=== PATIENT | male | born 1965 | race Caucasian/White ===

== ENCOUNTER 2017-01-18 13:04 | Observation (INO) | payer OTHER ==
[2017-01-18] VITALS (9 sets, daily range): BP systolic 97–150; BP diastolic 54–85; PULSE 61–80; RESP 16–20; TEMP 97.3–98.4; O2SAT 96–98
[~2017-01-18] VITALS: Ht 172.7 cm; Wt 72.5 kg
--- NOTE | 2017-01-18 13:21 | PD ---
HPI Chief Complaint: Chest Pain Time Seen by Provider: 13:20 Travel History International Travel<30 days: No Contact w/Intl Traveler<30days: No Traveled to known affect area: No History of Present Illness HPI This is a 51-year-old male presents emergency department for evaluation of chest tightness. Patient states his been on and off for the past week, he presented to the emergency department today because while mowing his lawn the chest tightness. Fairly tense associated with some nausea without vomiting as well as some mild shortness of breath. Patient states she's never had heart problems before other than evaluation for palpitations and is recommended that he have a stress test please never had one performed. He is a smoker has hypertriglyceridemia but no high blood pressure no diabetes. PFSH Past Medical History Narrative Medical NICK 12 years ago, palpitations, Past Surgical History Narrative Surgical Knee surgery, bladder surgery, Social History Alcohol Use: Yes Tobacco Use: Yes Substance Use: Yes Allergies-Medications (Allergen,Severity, Reaction): Coded Allergies: No Known Allergies (Unverified , 01/18/17) Review of Systems Except as stated in HPI: all other systems reviewed are Neg Physical Exam Narrative GENERAL: Well-developed well-nourished in no obvious distress. SKIN: Focused skin assessment warm/dry. HEAD: Atraumatic. Normocephalic. EYES: Pupils equal and round. No scleral icterus. No injection or drainage. ENT: No nasal bleeding or discharge. Mucous membranes pink and moist. NECK: Trachea midline. No JVD. CARDIOVASCULAR: Regular rate and rhythm. No murmur appreciated. 2+ bilateral equal pulses in all 4 extremities. RESPIRATORY: No accessory muscle use. Clear to auscultation. Breath sounds equal bilaterally. GASTROINTESTINAL: Abdomen soft, non-tender, nondistended. Hepatic and splenic margins not palpable. MUSCULOSKELETAL: No obvious deformities. No clubbing. No cyanosis. No edema. NEUROLOGICAL: Awake and alert. No obvious cranial nerve deficits. Motor grossly within normal limits. Normal speech. PSYCHIATRIC: Appropriate mood and affect; insight and judgment normal. Data Data Last Documented VS Vital Signs Date Time Temp Pulse Resp B/P Pulse Ox O2 Delivery O2 Flow Rate FiO2 01/18/17 14:40 69 18 118/74 96 Room Air Orders Ckmb (Isoenzyme) Profile (01/18/17 13:27) Complete Blood Count With Diff (01/18/17 13:27) Comprehensive Metabolic Panel (01/18/17 13:27) Magnesium (Mg) (01/18/17 13:27) Prothrombin Time / Inr (Pt) (01/18/17 13:27) Act Partial Throm Time (Ptt) (01/18/17 13:27) Troponin I (01/18/17 13:27) Lipase (01/18/17 13:27) Chest, Single Ap (01/18/17 13:) Ecg Monitoring (01/18/17 13:) Bilateral Bp Monitoring (01/18/17 13:27) Iv Access Insert/Monitor (01/18/17 13:) Oximetry (01/18/17 13:) Oxygen Administration (01/18/17 13:) Aspirin Chew (Aspirin Chew) (01/18/17 13:30) Sodium Chloride 0.9% Flush (Ns Flush) (01/18/17 13:30) Nitroglycerin Sl (Nitrostat Sl) (01/18/17 13:30) CKMB (01/18/17 13:33) CKMB% (01/18/17 13:33) Ct Abd/Pel W Iv Contrast(Rout) (01/18/17 ) Electrocardiogram (01/18/17 13:15) Iohexol 350 Inj (Omnipaque 350 Inj) (01/18/17 15:14) Sodium Chlor 0.9% 1000 Ml Inj (Ns 1000 M (01/18/17 15:30) Admit Order (Ed Use Only) (01/18/17 ) Labs Laboratory Tests Test 01/18/17 13:33 White Blood Count 12.5 TH/MM3 Red Blood Count 4.75 MIL/MM3 Hemoglobin 14.4 GM/DL Hematocrit 42.0 % Mean Corpuscular Volume 88.4 FL Mean Corpuscular Hemoglobin 30.2 PG Mean Corpuscular Hemoglobin 34.2 % Concent Red Cell Distribution Width 12.0 % Platelet Count 289 TH/MM3 Mean Platelet Volume 7.9 FL Neutrophils (%) (Auto) 68.6 % Lymphocytes (%) (Auto) 22.2 % Monocytes (%) (Auto) 7.9 % Eosinophils (%) (Auto) 0.8 % Basophils (%) (Auto) 0.5 % Neutrophils # (Auto) 8.5 TH/MM3 Lymphocytes # (Auto) 2.8 TH/MM3 Monocytes # (Auto) 1.0 TH/MM3 Eosinophils # (Auto) 0.1 TH/MM3 Basophils # (Auto) 0.1 TH/MM3 CBC Comment DIFF FINAL Differential Comment Prothrombin Time 11.8 SEC Prothromb Time International 1.1 RATIO Ratio Activated Partial 25.0 SEC Thromboplast Time Sodium Level 141 MEQ/L Potassium Level 3.9 MEQ/L Chloride Level 105 MEQ/L Carbon Dioxide Level 28.2 MEQ/L Anion Gap 8 MEQ/L Blood Urea Nitrogen 19 MG/DL Creatinine 1.10 MG/DL Estimat Glomerular Filtration 71 ML/MIN Rate Random Glucose 102 MG/DL Calcium Level 8.5 MG/DL Magnesium Level 1.8 MG/DL Total Bilirubin 0.6 MG/DL Aspartate Amino Transf 18 U/L (AST/SGOT) Alanine Aminotransferase 20 U/L (ALT/SGPT) Alkaline Phosphatase 62 U/L Total Creatine Kinase 210 U/L Creatine Kinase MB 2.4 NG/ML Troponin I LESS THAN 0.02 NG/ML Total Protein 7.0 GM/DL Albumin 3.6 GM/DL Lipase 865 U/L MDM Medical Decision Making Medical Screen Exam Complete: Yes Emergency Medical Condition: Yes Interpretation(s) EKG shows normal sinus rhythm normal axis normal R-wave progression. No concerning ST segment changes. Intervals within normal limits. This normal EKG. Differential Diagnosis ACS, AMI, pneumonia, GERD, pancreatitis. Narrative Course Patient roomed in emergency department, has fairly classic descriptors of exertional chest pain associated with cardiac disease. Initial EKG and troponin are negative, patient has an elevation of lipase to 800, think his symptoms are much more consistent with cardiac disease but I think a CAT scan was indicated is never had pancreatitis before. Ultimately I will recommend admission to the hospital for this patient for exclusion of coronary artery disease. This was discussed the patient and he is agreeable. Patient was given nitroglycerin and feels somewhat better. Last 24 hours Impressions Chest X-Ray 01/18/17 1327 Signed Impressions: Service Date/Time: Wednesday, January 18, 2017 13:53 - CONCLUSION: No acute cardiopulmonary disease. Janell Conde MD Abdomen/Pelvis CT 01/18/17 0000 Signed Impressions: Service Date/Time: Wednesday, January 18, 2017 14:53 - CONCLUSION: Distal ureteral diverticuli bilaterally and scattered diverticuli in the colon. Janell Conde MD Diagnosis Primary Impression: Chest pain Additional Impression: Pancreatitis Admitting Information Admitting Physician Requests: Observation Condition: Stable Aureliano Woodall MD Jan 18, 2017 13:20
[2017-01-18] MEDS ORDERED: NITROGLYCERIN 0.4 MG SL 25 TABS/BTL SL ONE (13:30)
[2017-01-18] MEDS ORDERED: ASPIRIN 81 MG CHEW TAB PO ONE (13:30)
[2017-01-18] MEDS ORDERED: SODIUM CHLORIDE 0.9% FLUSH 10 ML FLUSH IVF PRN (13:30)
[2017-01-18 13:43] LABS: AUTOMATED NEUTROPHIL # 8.5 TH/MM3 (1.8-7.7); BASOPHIL # 0.1 TH/MM3 (0-0.2); BASOPHIL % 0.5 % (0.0-2.0); EOSINOPHIL # 0.1 TH/MM3 (0-0.4); EOSINOPHIL % 0.8 % (0.0-4.0); HEMO FLAGS DIFF FINAL; LYMPH % 22.2 % (9.0-44.0); LYMPHOCYTE # 2.8 TH/MM3 (1.0-4.8); MEAN CELL VOLUME 88.4 FL (80.0-100.0); MEAN CORPUSCULAR HEMOGLOBIN 30.2 PG (27.0-34.0); MEAN CORPUSCULAR HGB CONC 34.2 % (32.0-36.0); MONO % 7.9 % (0.0-8.0); NEUT % 68.6 % (16.0-70.0); PLATELET COUNT 289 TH/MM3 (150-450); RED BLOOD COUNT 4.75 MIL/MM3 (4.50-5.90); WHITE BLOOD COUNT 12.5 TH/MM3 (4.0-11.0)
[2017-01-18 13:52] LABS: CHLORIDE 105 MEQ/L (98-107); POTASSIUM 3.9 MEQ/L (3.5-5.1); SODIUM (NA) 141 MEQ/L (136-145)
[2017-01-18 13:56] LABS: ANION GAP 8 MEQ/L (5-15); BICARBONATE 28.2 MEQ/L (21.0-32.0); BLOOD UREA NITROGEN 19 MG/DL (7-18); MAGNESIUM 1.8 MG/DL (1.5-2.5)
[2017-01-18 13:57] LABS: INTERNATIONAL NORMALIZED RATIO 1.1 RATIO; PROTHROMBIN TIME - PATIENT 11.8 SEC (9.8-11.6)
[2017-01-18 13:59] LABS: ALT (GPT) 20 U/L (12-78); AST (GOT) 18 U/L (15-37); GLOMERULAR FILTRATION RATE 71 ML/MIN (>89)
[2017-01-18 14:00] LABS: TOTAL BILIRUBIN ADULT 0.6 MG/DL (0.2-1.0)
[2017-01-18 14:02] LABS: ALKALINE PHOSPHATASE 62 U/L (45-117); CREATINE KINASE 210 U/L (39-308)
[2017-01-18 14:14] LABS: CKMB 2.4 NG/ML (0.5-3.6)
--- NOTE | 2017-01-18 14:31 | RADRPT ---
EXAM DATE/TIME: 01/18/2017 13:53 [facility] COMPARISON: No previous studies available for comparison. INDICATIONS : Chest pain, short of breath MEDICAL HISTORY : None. SURGICAL HISTORY : None. ENCOUNTER: Initial ACUITY: 2 weeks PAIN SCORE: 7/10 LOCATION: Bilateral chest FINDINGS: The lungs are clear without infiltrate, nodule, or mass. There is no appreciable pleural effusion fo r technique. Heart and mediastinum are unremarkable. CONCLUSION: No acute cardiopulmonary disease. Janell Conde MD on January 18, 2017 at 14:29 Board Certified Radiologist. This report was verified electronically.
[2017-01-18] MEDS ORDERED: IOHEXOL 350 MG/ML 10 ML VIAL (for RAD DIAG) IV ONE (15:14)
[2017-01-18] MEDS ORDERED: SODIUM CHLOR 0.9% 1000 ML INJ 1,000 ML IV ONE (15:30)
--- NOTE | 2017-01-18 15:37 | RADRPT ---
EXAM DATE/TIME: 01/18/2017 14:53 [facility] COMPARISON: No previous studies available for comparison. INDICATIONS : Chest pain,elevated lipase. IV CONTRAST: 100 cc Omnipaque 350 (iohexol) IV ORAL CONTRAST: No oral contrast ingested. RADIATION DOSE: 6.90 CTDIvol (mGy) MEDICAL HISTORY : TIA SURGICAL HISTORY : Bladder surgery. ENCOUNTER: Initial ACUITY: 1 day PAIN SCALE: 3/10 LOCATION: Bilateral chest TECHNIQUE: Volumetric scanning of the abdomen and pelvis was performed. Using automated exposure control and ad justment of the mA and/or kV according to patient size, radiation dose was kept as low as reasonably achievable to obtain optimal diagnostic quality images. DICOM format image data is available electro nically for review and comparison. FINDINGS: CT Abdomen: The liver, spleen, pancreas, kidneys, adrenals are unremarkable. There is no evidence for any appreciable pathological adenopathy, free fluid, or bowel obstruction. CT pelvis: There is no evidence for mass, abscess formation, or any significant adenopathy within the pelvis. The prostate gland is inhomogeneous and measures 3.2 x 3.8 cm in AP and transverse diameters and nonspecific. There are scattered diverticuli mainly in the sigmoid colon without definite signs of diverticulitis. There appears to be dilatations of the bilateral distal ureters prior to insertion into the bladder at the appearance of diverticuli. On the left side measures 2.5 cm and on the right side there are 2 separate areas the largest measures 2.1 cm in size. CONCLUSION: Distal ureteral diverticuli bilaterally and scattered diverticuli in the colon. Janell Conde MD on January 18, 2017 at 15:32 Board Certified Radiologist. This report was verified electronically.
[2017-01-18] MEDS ORDERED: NITROGLYCERIN 0.4 MG SL 25 TABS/BTL SL PRN (17:30)
[2017-01-18] MEDS ORDERED: ONDANSETRON HCL 4 MG/2 ML VIAL IVP PRN (17:30)
[2017-01-18] MEDS ORDERED: ACETAMINOPHEN 325 MG TAB PO PRN (17:30)
--- NOTE | 2017-01-18 17:35 | HHI.HP ---
[facility] Primary Care Physician Katelynn Hand Admission Diagnosis Chest pain, Pancreatitis. Diagnoses: Chief Complaint: Chest pain Travel History International Travel<30 Days: No Contact w/Intl Traveler <30 Da: No Traveled to Known Affected Are: No History of Present Illness Patient 51-year-old gentleman with minimal medical problems but admits almost 2 weeks of intermittent but severe chest tightness with exertion. Patient was mowing his lawn today had some chest discomfort. Patient says there is associated nausea and no vomiting and this discomfort is worse after he ate a previous episode. Patient denies any heart history and did come in with these complaints. He says while he was in [place] recently had the same symptoms after he ate heavy meals and noticed that he thought he had heartburn. He took some Rolaids with some relief. He came back home his encouraged him to come to the hospital. Patient does exercise daily and he does cardiovascular exercises at the gym without any discomfort oh however the last 3 days he has had increased shortness of breath and early fatigue. There is no family history of premature cardiac disease and the patient's EKG on my review it is normal without any ischemic changes. Patient does suffer from anxiety and takes amitriptyline as needed Review of Systems Constitutional: DENIES: Diaphoretic episodes, Fatigue, Fever, Weight gain, Weight loss, Chills, Dizziness, Change in appetite, Night Sweats Endocrine: DENIES: Heat/cold intolerance, Polydipsia, Polyuria, Polyphagia Eyes: DENIES: Blurred vision, Diplopia, Eye inflammation, Eye pain, Vision loss , Photosensitivity, Double Vision Ears, nose, mouth, throat: DENIES: Tinnitus, Hearing loss, Vertigo, Nasal discharge, Oral lesions, Throat pain, Hoarseness, Ear Pain, Running Nose, Epistaxis, Sinus Pain, Toothache, Odynophagia Respiratory: COMPLAINS OF: Shortness of breath, DENIES: Apneas, Cough, Snoring , Wheezing, Hemoptysis, Sputum production Cardiovascular: COMPLAINS OF: Chest pain, Palpitations, Dyspnea on Exertion Gastrointestinal: DENIES: Abdominal pain, Black stools, Bloody stools, Constipation, Diarrhea, Nausea, Vomiting, Difficulty Swallowing, Anorexia Genitourinary: DENIES: Sexual dysfunction, Urinary frequency, Urinary incontinence, Urgency, Hematuria, Dysuria, Nocturia, Penile Discharge, Testicular Pain, Testicular Swelling Musculoskeletal: DENIES: Joint pain, Muscle aches, Stiffness, Joint Swelling, Back pain, Neck pain Integumentary: DENIES: Abnormal pigmentation, Nail changes, Pruritus, Rash Hematologic/lymphatic: DENIES: Bruising, Lymphadenopathy Immunologic/allergic: DENIES: Eczema, Urticaria Neurologic: DENIES: Abnormal gait, Headache, Localized weakness, Paresthesias, Seizures, Speech Problems, Tremor, Poor Balance Psychiatric: DENIES: Anxiety, Confusion, Mood changes, Depression, Hallucinations, Agitation, Suicidal Ideation, Homicidal Ideation, Delusions Past Family Social History Past Medical History Denies Past Surgical History Knee arthroscopically, bladder surgery Reported Medications None Allergies: Coded Allergies: No Known Allergies (Unverified , 01/18/17) Active Ordered Medications Reviewed in the medical record Family History Mother had diabetes, father's history is unknown but believed to have leukemia Sr. 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 SKIN: No rashes, ecchymoses or lesions. Cool and dry. HEAD: Atraumatic. Normocephalic. No temporal or scalp tenderness. EYES: Pupils equal round and reactive. Extraocular motions intact. No scleral icterus. No injection or drainage. ENT: Nose without bleeding, purulent drainage or septal hematoma. Throat without erythema, tonsillar hypertrophy or exudate. Uvula midline. Airway patent. NECK: Trachea midline. No JVD or lymphadenopathy. Supple, nontender, no meningeal signs. CARDIOVASCULAR: Regular rate and rhythm without murmurs, gallops, or rubs. RESPIRATORY: Clear to auscultation. Breath sounds equal bilaterally. No wheezes , rales, or rhonchi. GASTROINTESTINAL: Abdomen soft, non-tender, nondistended. No hepato-splenomegaly , or palpable masses. No guarding. MUSCULOSKELETAL: Extremities without clubbing, cyanosis, or edema. No joint tenderness, effusion, or edema noted. No calf tenderness. Negative Homans sign bilaterally. NEUROLOGICAL: Awake and alert. Cranial nerves II through XII intact. Motor and sensory grossly within normal limits. Five out of 5 muscle strength in all muscle groups. Normal speech. Laboratory Laboratory Tests Test 01/18/17 13:33 White Blood Count 12.5 Red Blood Count 4.75 Hemoglobin 14.4 Hematocrit 42.0 Mean Corpuscular Volume 88.4 Mean Corpuscular Hemoglobin 30.2 Mean Corpuscular Hemoglobin 34.2 Concent Red Cell Distribution Width 12.0 Platelet Count 289 Mean Platelet Volume 7.9 Neutrophils (%) (Auto) 68.6 Lymphocytes (%) (Auto) 22.2 Monocytes (%) (Auto) 7.9 Eosinophils (%) (Auto) 0.8 Basophils (%) (Auto) 0.5 Neutrophils # (Auto) 8.5 Lymphocytes # (Auto) 2.8 Monocytes # (Auto) 1.0 Eosinophils # (Auto) 0.1 Basophils # (Auto) 0.1 CBC Comment DIFF FINAL Differential Comment Prothrombin Time 11.8 Prothromb Time International 1.1 Ratio Activated Partial 25.0 Thromboplast Time Sodium Level 141 Potassium Level 3.9 Chloride Level 105 Carbon Dioxide Level 28.2 Anion Gap 8 Blood Urea Nitrogen 19 Creatinine 1.10 Estimat Glomerular Filtration 71 Rate Random Glucose 102 Calcium Level 8.5 Magnesium Level 1.8 Total Bilirubin 0.6 Aspartate Amino Transf 18 (AST/SGOT) Alanine Aminotransferase 20 (ALT/SGPT) Alkaline Phosphatase 62 Total Creatine Kinase 210 Creatine Kinase MB 2.4 Troponin I LESS THAN 0.02 Total Protein 7.0 Albumin 3.6 Lipase 865 Result Diagram: 01/18/17 1333 01/18/17 1333 Imaging Last Impressions Chest X-Ray 01/18/17 1327 Signed Impressions: Service Date/Time: Wednesday, January 18, 2017 13:53 - CONCLUSION: No acute cardiopulmonary disease. Janell Cnode MD Abdomen/Pelvis CT 01/18/17 0000 Signed Impressions: Service Date/Time: Wednesday, January 18, 2017 14:53 - CONCLUSION: Distal ureteral diverticuli bilaterally and scattered diverticuli in the colon. Janell Conde MD Assessment and Plan Problem List: (1) Chest pain ICD Code: R07.9 Status: Acute Plan: atypical r/o gi causes Us gb pending follow up lipid profile meanwhile treat with morphine, oxygen, nitroglycerin, aspirin Continue telemetry Add proton pump inhibitor Marian Faustin MD Jan 18, 2017 17:35
[2017-01-18] MEDS: PANTOPRAZOLE SOD 40 MG DELAYED RELEASE TAB PO SCH (17:45)
[2017-01-18] MEDS ORDERED: AMITRIPTYLINE HCL 25 MG TAB PO PRN (17:45)
[2017-01-18] MEDS ORDERED: MORPHINE SULFATE 8 MG/ML INJ IV PUSH PRN (17:45)
[2017-01-18] MEDS: SODIUM CHLOR 0.9% 1000 ML INJ 1,000 ML IV SCH (17:47)
--- NOTE | 2017-01-18 20:26 | RADRPT ---
EXAM DATE/TIME: 01/18/2017 19:51 [facility] COMPARISON: No previous studies available for comparison. INDICATIONS : Right upper quadrant pain. MEDICAL HISTORY : Hypercholesterolemia. Cerebrovascular accident. Palptations. Dyspnea. Alcohol use. Substance use. SURGICAL HISTORY : Appendectomy. Bladder surgery. ACL and meniscus repair. ENCOUNTER: Initial ACUITY: 1 day PAIN SCORE: 10 LOCATION: Right upper quadrant MEASUREMENTS: LIVER: 16.3 cm length COMMON DUCT: 3 mm RIGHT KIDNEY: 10.1 x 5.4 x 5.9 cm FINDINGS: The liver is slightly echogenic which maybe due to fatty infiltration and or hepatocellular dysfuncti on. The gallbladder is intact without any evidence for gallstones, gallbladder wall thickening, or pe richolecystic fluid. The right kidney appear grossly intact for technique. The pancreas is obscured by gas. CONCLUSION: The liver is slightly echogenic which maybe due to fatty infiltration and or hepatoce llular dysfunction. Janell Conde MD on January 18, 2017 at 20:23 Board Certified Radiologist. This report was verified electronically.
[2017-01-18 22:50] LABS: CREATINE KINASE 216 U/L (39-308)
[2017-01-18 23:02] LABS: CKMB 2.1 NG/ML (0.5-3.6)
[2017-01-19] VITALS (11 sets, daily range): BP systolic 97–178; BP diastolic 63–88; PULSE 62–80; RESP 16–20; TEMP 96.4–98.2; O2SAT 96–98
[2017-01-19] MEDS: PANTOPRAZOLE SOD 40 MG DELAYED RELEASE TAB PO SCH (08:29)
[2017-01-19] MEDS: SODIUM CHLOR 0.9% 1000 ML INJ 1,000 ML IV SCH ×3 (08:32→20:12)
--- NOTE | 2017-01-19 09:13 | HHI.PR ---
Subjective Remarks Patient seen today in follow-up for atypical chest pain. Chest pain is resolved and lipase is improved. Patient reports improvement with Protonix. He also reported some anxiety and desire for cigarettes. Plan for stress test discussed with patient and spouse at bedside. Care plan discussed with Mrayan KERNS Objective Vitals Vital Signs Date Time Temp Pulse Resp B/P Pulse Ox O2 Delivery O2 Flow Rate FiO2 01/19/17 04:00 96.4 67 18 121/79 96 01/19/17 00:53 67 01/19/17 00:00 97.3 68 20 97/63 96 01/18/17 20:10 98.4 61 17 123/85 98 01/18/17 20:10 61 01/18/17 19:45 62 16 118/60 98 Room Air 01/18/17 19:03 58 Room Air 01/18/17 16:35 70 16 120/54 98 Room Air 01/18/17 14:40 69 18 118/74 96 Room Air 01/18/17 13:49 80 18 150/76 96 Room Air 01/18/17 13:40 135/72 150/83 01/18/17 13:34 97 Room Air 01/18/17 13:34 18 97 Room Air 01/18/17 13:15 75 18 97 Room Air 01/18/17 13:12 70 18 144/82 98 I/O 01/18/17 01/18/17 01/18/17 01/19/17 01/19/17 01/19/17 07:00 15:00 23:00 07:00 15:00 23:00 Intake Total 1440 ml 0 ml Output Total 1150 ml Balance 290 ml 0 ml Intake Oral 240 ml 0 ml IV Total 1200 ml Output Urine Total 1150 ml # Voids 1 1 1 # Bowel Movements 0 Result Diagram: 01/18/17 1333 01/18/17 1333 Imaging Last Impressions Chest X-Ray 01/18/17 1327 Signed Impressions: Service Date/Time: Wednesday, January 18, 2017 13:53 - CONCLUSION: No acute cardiopulmonary disease. Janell Conde MD Gall Bladder Ultrasound 01/18/17 0000 Signed Impressions: Service Date/Time: Wednesday, January 18, 2017 19:51 - CONCLUSION: The liver is slightly echogenic which maybe due to fatty infiltration and or hepatocellular dysfunction. Janell Conde MD Abdomen/Pelvis CT 01/18/17 0000 Signed Impressions: Service Date/Time: Wednesday, January 18, 2017 14:53 - CONCLUSION: Distal ureteral diverticuli bilaterally and scattered diverticuli in the colon. Janell Conde MD Objective Remarks GENERAL: This is a well-nourished, well-developed patient, in no apparent distress. CARDIOVASCULAR: Regular rate and rhythm without murmurs, gallops, or rubs. RESPIRATORY: Clear to auscultation. Breath sounds equal bilaterally. No wheezes , rales, or rhonchi. GASTROINTESTINAL: Abdomen soft, non-tender, nondistended. Normal active bowel sounds MUSCULOSKELETAL: Extremities without clubbing, cyanosis, or edema. NEURO: Alert & Oriented x4 to person, place, time, situation. Moves all ext x4 A/P Problem List: (1) Chest pain ICD Code: R07.9 Status: Acute Plan: atypical r/o gi causes Nuclear stress test pending Us gb unremarkable follow up lipid profile meanwhile treat with morphine, oxygen, nitroglycerin, aspirin Continue telemetry Continue proton pump inhibitor Assessment and Plan If stress tests negative likely discharge home to follow with primary care doctor and with proton pump inhibitor Marian Faustin MD Jan 19, 2017 09:13
--- NOTE | 2017-01-19 10:13 | HHI.DCPOC ---
Discharge Care Plan Diagnosis: (1) Chest pain, atypical Goals to Promote Your Health * To prevent worsening of your condition and complications * To maintain your health at the optimal level Directions to Meet Your Goals Take your medications as prescribed Follow your dietary instruction Follow activity as directed Keep your appointments as scheduled Take your immunizations and boosters as scheduled If your symptoms worsen call your PCP, if no PCP go to Urgent Care Center or Emergency Room Smoking is Dangerous to Your Health. Avoid second hand smoke Call the 24-hour hour crisis hotline for domestic abuse at Marian Faustin MD Jan 19, 2017 10:13
[2017-01-19] MEDS ORDERED: REGADENOSON INJ 0.4 MG/5 ML SYR IV ONE (10:34)
[2017-01-19 10:59] LABS: HDL CHOLESTEROL 39.4 MG/DL (40.0-60.0)
--- NOTE | 2017-01-19 12:21 | RADRPT ---
EXAM DATE/TIME: 01/19/2017 10:25 [facility] COMPARISON: No previous studies available for comparison. INDICATIONS : Substernal chest pain with mild dyspnea and nausea. Angina. DOSE: 26.3 mCi Tc99m Myoview at stress. 8.8 mCi Tc99m Myoview at rest. 0.4 mg Lexiscan STRESS SYMPTOMS: Dyspnea and nausea. EJECTION FRACTION: 51% MEDICAL HISTORY : Hypercholesterolemia. Smoker. SURGICAL HISTORY : Orthopedic. ENCOUNTER: Initial ACUITY: 1 week PAIN SCALE: 4/10 LOCATION: Substernal chest TECHNIQUE: The patient underwent pharmacologic stress with infusion of prescribed dose. Continuous ECG tracing was monitored during stress. Gated SPECT imaging was performed after stress and conventional SPECT i maging was performed at rest. The examination was performed on a SPECT/CT scanner, both attenuation and non-corrected datasets were reviewed. FINDINGS: DISTRIBUTION: The maximum perfused segment at stress is in the inferior wall. PERFUSION STUDY: Stress induced hypoperfusion is present throughout the anterior and anterolateral jose of the left v entricle. A focal fixed perfusion abnormalities identified in the inferoseptal wall. GATED STUDY: The anterior wall is mildly hypokinetic. Wall motion is otherwise intact.. CONCLUSION: Reversible stress induced hypoperfusion involving the anterior and anterolateral jose of left ventri manjit. Small persistent defect in the inferoseptal wall. RISK CATEGORY: High (>3% Annual Mortality Rate) León Crawford MD on January 19, 2017 at 12:16 Board Certified Radiologist. This report was verified electronically.
--- NOTE | 2017-01-19 12:41 | EKG ---
Date Performed: 01/18/2017 Time Performed: 13:15:12 PTAGE: 51 years EKG: Sinus rhythm NORMAL ECG NO PREVIOUS TRACING DOCTOR: Shubham Hopkins Interpretating Date/Time 01/19/2017 12:34:50
[2017-01-19] MEDS: ALPRAZolam 0.5 MG TAB PO PRN (20:12)
[2017-01-20] VITALS (27 sets, daily range): BP systolic 116–128; BP diastolic 52–77; PULSE 54–70; RESP 16–20; TEMP 97.4–98.2; O2SAT 94–97
[2017-01-20] MEDS: SODIUM CHLOR 0.9% 1000 ML INJ 1,000 ML IV SCH ×2 (06:30→19:20)
[2017-01-20] MEDS: ASPIRIN 325 MG TAB PO SCH (08:23)
[2017-01-20] MEDS: PANTOPRAZOLE SOD 40 MG DELAYED RELEASE TAB PO SCH (08:23)
[2017-01-20] MEDS: ALPRAZolam 0.5 MG TAB PO PRN ×2 (08:23→19:44)
--- NOTE | 2017-01-20 08:33 | HHI.PR ---
Subjective Remarks Pt states he feels well. Denies any Chest pains, SOB, nausea or vomiting. Was about to go for a walk. Hasn't yet spoken w cards Discussed w RN, no concerns at this time. Objective Vitals Vital Signs Date Time Temp Pulse Resp B/P Pulse Ox O2 Delivery O2 Flow Rate FiO2 01/20/17 07:00 57 01/20/17 06:20 55 01/20/17 05:31 56 01/20/17 04:10 98.0 61 16 123/77 97 01/20/17 04:10 54 01/20/17 03:15 57 01/20/17 02:00 60 01/20/17 01:20 60 01/20/17 00:10 60 01/20/17 00:00 98.0 70 18 116/52 94 01/19/17 23:37 64 01/19/17 22:00 62 01/19/17 21:00 74 01/19/17 20:20 65 01/19/17 20:20 98.2 66 16 128/79 96 01/19/17 16:03 65 01/19/17 16:00 98.1 80 18 130/77 97 01/19/17 12:10 97.6 67 16 129/74 98 I/O 01/19/17 01/19/17 01/19/17 01/20/17 01/20/17 01/20/17 07:00 15:00 23:00 07:00 15:00 23:00 Intake Total 0 ml 240 ml 1210 ml Output Total 675 ml Balance 0 ml 240 ml 535 ml Intake Oral 0 ml 240 ml 440 ml IV Total 770 ml Output Urine Total 675 ml # Voids 1 3 # Bowel Movements 0 Result Diagram: 01/18/17 1333 01/18/17 1333 Imaging Last Impressions Myocardial Perfusion Scan Nuc Med 01/19/17 0600 Signed Impressions: Service Date/Time: Thursday, January 19, 2017 10:25 - CONCLUSION: Reversible stress induced hypoperfusion involving the anterior and anterolateral jose of left ventricle. Small persistent defect in the inferoseptal wall. RISK CATEGORY: High (>3%% Annual Mortality Rate) León Crawford MD Chest X-Ray 01/18/17 1327 Signed Impressions: Service Date/Time: Wednesday, January 18, 2017 13:53 - CONCLUSION: No acute cardiopulmonary disease. Janell Conde MD Gall Bladder Ultrasound 01/18/17 0000 Signed Impressions: Service Date/Time: Wednesday, January 18, 2017 19:51 - CONCLUSION: The liver is slightly echogenic which maybe due to fatty infiltration and or hepatocellular dysfunction. Janell Conde MD Abdomen/Pelvis CT 01/18/17 0000 Signed Impressions: Service Date/Time: Wednesday, January 18, 2017 14:53 - CONCLUSION: Distal ureteral diverticuli bilaterally and scattered diverticuli in the colon. Janell Conde MD Objective Remarks GENERAL: This is a well-nourished, well-developed patient, ambulating in room CARDIOVASCULAR: Regular rate and rhythm without murmurs RESPIRATORY: Clear to auscultation. Breath sounds equal bilaterally. No wheezes GASTROINTESTINAL: Abdomen soft, non-tender, nondistended. Normal active bowel sounds MUSCULOSKELETAL: Extremities without edema. NEURO: Alert & Oriented x4 to person, place, time, situation. Moves all ext x4 Eyes: EOMI Psych: pleasant A/P Problem List: (1) Chest pain ICD Code: R07.9 Status: Acute Assessment and Plan Chest Pain: atypical, lipase levels initially elevated but back down to normal. Nuclear stress test shows :"Reversible stress induced hypoperfusion involving the anterior and anterolateral jose of left ventricle. Small persistent defect in the inferoseptal wall. High risk. Pt was transferred from for further eval. Cards consulted. awaiting final recs". Us gb unremarkable Lipid profile TG 153, LDL 113, HDL 39.4. will start lipitor 40mg po daily. on morphine, oxygen, nitroglycerin, aspirin Continue telemetry Continue proton pump inhibitor Discharge Planning awaiting final recs from cards Saskia Rodriguez MD Jan 20, 2017 08:32
[2017-01-20] MEDS: ATORVASTATIN 40 MG TAB PO SCH (13:18)
--- NOTE | 2017-01-20 18:55 | MB ---
cc: SAGE ROWLAND DO DATE OF CONSULTATION: 01/20/2017. REASON FOR CONSULTATION: Chest pain with abnormal stress test. HISTORY OF PRESENT ILLNESS: Blas Faustin is a pleasant 51-year-old male who presented due to intermittent chest pain for the past few weeks to the [facility] Emergency Room. He was ruled out for a myocardial infarction and so he underwent a pharmacologic nuclear stress test which was shown to have anterior and anterolateral wall hypoperfusion during stress. Because of this, he was recommended cardiac catheterization. In speaking to him, he states that he has had episodes off and on of chest pain for some time. He had an episode with his son a while back that took him into his knees because the chest pain was so much. He started having a workup in the outpatient office with Dr. Walker. He just recently went to [place] and upon arriving back he has had the same chest pain. The chest pain is a small area on the anterior left side of the chest which he can point to with one finger. He has also had episodes of nausea but no vomiting. During this, he also gets an epigastric discomfort. The patient does exercise daily and during cardiovascular he has no significant discomfort but has noticed recently increased shortness of breath with fatigue. In seeing him, he is currently hemodynamically stable without chest pain. PAST MEDICAL HISTORY: Denies. PAST SURGICAL HISTORY: 1. Bladder surgery. 2. Arthroscopic knee surgery. ALLERGIES: NO KNOWN DRUG ALLERGIES. MEDICATIONS: Denies. FAMILY HISTORY: Mother has diabetes. His father's history is unknown. SOCIAL HISTORY: The patient smokes a pack of cigarettes a day. Denies alcohol. He is . 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 Denies drug abuse. REVIEW OF SYSTEMS Fourteen systems were reviewed including osteopathic with pertinent positives and negatives as above; otherwise negative. PHYSICAL EXAMINATION: VITAL SIGNS: Temperature 98.2, heart rate 60, blood pressure 122/64, respirations 20, pulse ox 96% on room air. GENERAL: In general, the patient appears well and in no acute distress, alert awake and oriented x3. HEAD, EYES, EARS, NOSE, THROAT: Extraocular muscles intact. Mucous membranes moist. NECK: The neck is supple. No JVD at 45 degrees. No carotid bruits heard bilaterally. Carotid upstroke is brisk in nature. HEART: Regular rate and rhythm. Positive first and second heart sounds with no murmurs, gallops or rubs. PMI is nondisplaced. LUNGS: Clear to auscultation bilaterally. No wheezes, rales or rhonchi. ABDOMEN: The abdomen is soft, nontender and nondistended. No organomegaly noted. EXTREMITIES: No clubbing, cyanosis or edema. Femoral and distal pulses are intact bilaterally. NEUROLOGIC: No focal deficits. OSTEOPATHIC: Osteopathically, no kyphoscoliosis, lordosis or paraspinal tender points. LABORATORY FINDINGS: Hemoglobin 14.4, hematocrit 42.0, platelets 289,000. Potassium 3.9, BUN 19, creatinine 1.1. Troponin negative x2. Total cholesterol 183, LDL 113, HDL 39.4, triglycerides 153. Electrocardiogram (January 18, 2017 at 1315): Normal sinus rhythm with 69 beats per minute, no acute S-T-T wave changes. IMPRESSION: 1. Chest pain concerning for coronary insufficiency. 2. Abnormal pharmacologic nuclear stress test with possible ischemia in the anterior and anterolateral jose considered an intermediate risk stress test. 3. Tobacco abuse. RECOMMENDATIONS: 1. Mr. Faustin is presenting with chest pain and underwent a stress test showing an intermediate risk and because of this he has been recommended cardiac catheterization. 2. Risks, benefits and alternatives were explained to him and his . He consents as such. 3. We will plan cardiac catheterization tomorrow from a right radial standpoint. 4. If no significant disease is found during the procedure, consideration should be made for a GI workup as the patient has had multiple episodes of nausea and heartburn. 5. Further recommendations will be made after coronary visualization. Thank you for allowing me to see Blas Faustin. If there are any questions, please do not hesitate to call. Sage Rowland DO VGP/JCC /4:32 PM /6:50 PM
[2017-01-21] VITALS (17 sets, daily range): BP systolic 115–154; BP diastolic 67–88; PULSE 51–65; RESP 18–20; TEMP 98–98.3; O2SAT 97–100
[2017-01-21 06:24] LABS: AUTOMATED NEUTROPHIL # 5.8 TH/MM3 (1.8-7.7); BASOPHIL # 0.1 TH/MM3 (0-0.2); BASOPHIL % 0.9 % (0.0-2.0); EOSINOPHIL # 0.1 TH/MM3 (0-0.4); EOSINOPHIL % 1.7 % (0.0-4.0); HEMATOCRIT 38.3 % (39.0-51.0); HEMO FLAGS DIFF FINAL; LYMPH % 22.6 % (9.0-44.0); MEAN CELL VOLUME 90.3 FL (80.0-100.0); MEAN CORPUSCULAR HGB CONC 34.3 % (32.0-36.0); MONO % 8.3 % (0.0-8.0); NEUT % 66.5 % (16.0-70.0); PLATELET COUNT 227 TH/MM3 (150-450); RED BLOOD COUNT 4.24 MIL/MM3 (4.50-5.90); RED CELL DISTRIBUTION WIDTH 12.8 % (11.6-17.2); WHITE BLOOD COUNT 8.8 TH/MM3 (4.0-11.0)
[2017-01-21 06:50] LABS: BICARBONATE 26.9 MEQ/L (21.0-32.0); POTASSIUM 4.3 MEQ/L (3.5-5.1)
[2017-01-21] MEDS: ATORVASTATIN 40 MG TAB PO SCH (08:03)
[2017-01-21] MEDS: ASPIRIN 325 MG TAB PO SCH (08:03)
[2017-01-21] MEDS: ALPRAZolam 0.5 MG TAB PO PRN (08:03)
[2017-01-21] MEDS: PANTOPRAZOLE SOD 40 MG DELAYED RELEASE TAB PO SCH (08:03)
[2017-01-21] MEDS ORDERED: VERAPAMIL HCL 5 MG/2 ML VIAL ONE (08:08)
[2017-01-21] MEDS ORDERED: HEPARIN-NS/PF INJ 500 ML ONE (08:08)
[2017-01-21] MEDS ORDERED: MIDAZOLAM HCL 2 MG/2 ML VIAL ONE ×2 (08:09→10:00)
[2017-01-21] MEDS ORDERED: HEPARIN SODIUM - IV 10,000 UNITS/10 ML VIAL ONE (08:09)
[2017-01-21] MEDS ORDERED: NITROGLYCERIN INJ 5 ML ONE (08:09)
--- NOTE | 2017-01-21 08:29 | HHI.PR ---
Subjective Remarks Pt about to go to [place]. denies any chest pain, SOB, nausea or vomiting. Feeling a bit anxious. Objective Vitals Vital Signs Date Time Temp Pulse Resp B/P Pulse Ox O2 Delivery O2 Flow Rate FiO2 01/21/17 06:00 53 01/21/17 05:00 60 01/21/17 04:00 98.0 53 20 126/76 97 01/21/17 04:00 62 01/21/17 03:00 51 01/21/17 02:00 58 01/21/17 01:00 55 01/21/17 00:00 98.0 55 20 115/67 97 01/21/17 00:00 65 01/20/17 23:00 56 01/20/17 22:00 58 01/20/17 21:00 62 01/20/17 20:00 97.4 66 20 128/75 97 01/20/17 20:00 58 01/20/17 19:00 66 01/20/17 18:00 66 01/20/17 17:00 65 01/20/17 16:00 63 01/20/17 15:28 98.2 60 20 122/64 96 01/20/17 15:00 67 01/20/17 14:00 60 01/20/17 13:00 65 01/20/17 12:00 60 01/20/17 11:15 98.1 60 20 124/68 96 01/20/17 11:00 58 01/20/17 10:00 59 01/20/17 09:00 59 I/O 01/20/17 01/20/17 01/20/17 01/21/17 01/21/17 01/21/17 06:59 14:59 22:59 06:59 14:59 22:59 Intake Total 1210 ml 2175 ml 1592 ml Output Total 675 ml 875 ml 825 ml Balance 535 ml 1300 ml 767 ml Intake Oral 440 ml 975 ml 420 ml IV Total 770 ml 1200 ml 1172 ml Output Urine Total 675 ml 875 ml 825 ml # Bowel Movements 0 Result Diagram: 01/21/17 0557 01/21/17 0557 Imaging Last Impressions Myocardial Perfusion Scan Nuc Med 01/19/17 0600 Signed Impressions: Service Date/Time: Thursday, January 19, 2017 10:25 - CONCLUSION: Reversible stress induced hypoperfusion involving the anterior and anterolateral jose of left ventricle. Small persistent defect in the inferoseptal wall. RISK CATEGORY: High (>3%% Annual Mortality Rate) León Crawford MD Chest X-Ray 01/18/17 1327 Signed Impressions: Service Date/Time: Wednesday, January 18, 2017 13:53 - CONCLUSION: No acute cardiopulmonary disease. Janell Conde MD Gall Bladder Ultrasound 01/18/17 0000 Signed Impressions: Service Date/Time: Wednesday, January 18, 2017 19:51 - CONCLUSION: The liver is slightly echogenic which maybe due to fatty infiltration and or hepatocellular dysfunction. Janell Conde MD Abdomen/Pelvis CT 01/18/17 0000 Signed Impressions: Service Date/Time: Wednesday, January 18, 2017 14:53 - CONCLUSION: Distal ureteral diverticuli bilaterally and scattered diverticuli in the colon. Jnaell Conde MD Objective Remarks GENERAL: This is a well-nourished, well-developed patient, ambulating in room CARDIOVASCULAR: Regular rate and rhythm without murmurs RESPIRATORY: Clear to auscultation. Breath sounds equal bilaterally. No wheezes GASTROINTESTINAL: Abdomen soft, non-tender, nondistended. Normal active bowel sounds MUSCULOSKELETAL: Extremities without edema. NEURO: Alert & Oriented . Moves all ext x4 Eyes: EOMI Psych: pleasant A/P Problem List: (1) Chest pain ICD Code: R07.9 Status: Acute Assessment and Plan Chest Pain: atypical, lipase levels initially elevated but back down to normal. Nuclear stress test shows :"Reversible stress induced hypoperfusion involving the anterior and anterolateral jose of left ventricle. Small persistent defect in the inferoseptal wall. High risk. Pt was transferred from for further eval. Cards consulted. awaiting final recs". Us gb unremarkable Lipid profile TG 153, LDL 113, HDL 39.4. on lipitor 40mg po daily. on morphine, oxygen, nitroglycerin, aspirin Continue telemetry Continue proton pump inhibitor ECHO ordered and not yet resulted. f/u Discharge Planning Cardiac cath this morning f/u 2D ECHO awaiting final recs from Saskia Trujillo MD Jan 21, 2017 08:29
[2017-01-21] MEDS ORDERED: IOHEXOL 350 MG/ML 100 ML BTL (for Cath Lab) OTHER ONE (08:36)
--- NOTE | 2017-01-21 10:27 | CATHPROC ---
AWAK HIS Report Study Information Study Number Admission Scheduled Start Study Start [id number] Jan 18 2017 4:05PM 01/20/2017 Jan 21 2017 8:00AM [facility] Cardiac Catheterization Admit Source Facility Department Other [facility] - Ambulance Assistant Physician and Clinical Staff Initial Milton Araiza Sole Splitter Barby Law,KATIUSKARThomas Other cathlab, cathlab Recorder Theo, Columba,VIDEO SURVEILLANCE TECHNICIAN TECH2 Scrub Albertina Gould,PIEDAD TECH2 Procedures Performed Procedure Location (Site) Vessel Name Coronary Angiograms LCA Left Coronary Coronary Angiograms RCA Right Coronary L Heart Cath Wire insertion Radial (right) Radial Art. Equipment Time Branch Office Manager Description Size Mfg Part Number Used/Scraped TRANSDUCER, TRUWAVE [id number] 08:43 [employer] * Used W/STOCKCOCK *[id number] *[id number] *[id number] *[id number] 08:43 [employer] PACK, CCL CUSTOM * Used *[id number] 08:43 [employer] SUPPORT, ARTERIAL ADULT 83232 Used BAND, RADIAL COMPRESSION TR [id number] 10:08 [employer] MEDICAL 24CM Used SHORT 24 *[id number] 08:43 [employer] MEDICAL WIRE, EXCHANGE 260CM 3MMJ 260CM Used *[id number] 08:43 [employer]OLD, 4 PORT * Used *[id number] 08:43 [employer] OMNIPAQUE, 350 MG, 150ML 150ML [id number] Used [id number] 08:43 [employer] BL[employer]ET,WARM AIR CCL * Used *[id number] SHEATH, FR6 TRANSRADIAL 08:43 [employer] FR 6 [id number] Used SLENDER 10CM 09:35 [employer] PRIME WIRE, VERRATA 185CM 185CM 17305 *[id number] Used History: Allergies Allergy Reaction No Known Allergies History: Risk Factors Family History of Hypertension Dyslipidemia Previous TN Previous Heart Failure Premature CAD No No No No No Prior Valve Prior PCI Prior CABG Surgery No No No Cerebrovascular Peripheral Artery Chronic Lung On Dialysis Diabetes Disease Disease Disease No Yes No No No History: Stress Tests Stress or Imaging Studies Performed Yes Standard Exercise Stress Test No Stress Echo No Stress Test SPECT No Stress Test CMR Stress Test CMR Result Stress Test CMR Ischemia Risk/Extent Yes Positive Low Cardiac CTA Coronary Calcium Score No No History: Other Current Smoker Method Packs a Day Years Used Pack Years Yes Cigarettes 1 30 30 Labs Hgb (g/dl) Hct (%) RBC (MIL/MM3) WBC (l/cumm) Platelets (thousands) 11.60-17.00 35.00-51.00 4.00-5.90 4.00-11.00 150.00-450.00 13.1 38.3 4.2 8.8 227 Glucose (mg/dl) BUN (mg/dl) Creatinine (mg/dl) BUN:Creatinine (1:x) 74.00-106.00 7.00-18.00 0.50-1.30 10.00-20.00 105 14 1.0 14 Na (meq/l) K (meq/l) Cl (meq/l) CO2 (mmol/L) Ca (mg/dl) 136.00-145.00 3.50-5.10 98.00-107.00 21.00-32.00 8.50-10.10 142 4.3 108 26.9 8.1 PT (sec) PTT (sec) INR (PTT:PT) 9.80-11.60 24.30-30.10 0.90-1.10 11.8 25 1 CPK-MB (ng/ML) 0.50-3.60 2.1 Medication Medication Total Dose (Bolus/Oral) Medication Total Dosage/Unit 1% XYLOCAINE 10 mL FENTANYL 150 mcg HEPARIN 4400 units RADIAL COCKTAIL 5 mL (Bolus) VERSED 2.5 mg Medications (Bolus/Oral) Medication Time Given Dosage/Unit Administered By Reason VERSED 01/21/2017 9:06:32 AM 1 mg Rittenour, Barby 1 mg VERSED given in lab by Barby Law BSRN in Left Antecubital via Peripheral IV. Ordered by Milton Moody. FENTANYL 01/21/2017 9:07:04 AM 50 mcg Rittenour, Barby 50 mcg FENTANYL given in lab by Barby Law BSRN in Left Antecubital via Peripheral IV. Ordered by Milton Moody. 1% XYLOCAINE 01/21/2017 9:14:16 AM 10 mL Rittenour, Barby 10 mL 1% XYLOCAINE given in lab by Barby Law BSRN in Right Radial via Subcutaneous. Ordered Milton Garcia. VERSED 01/21/2017 9:17:12 AM 0.5 mg Rittenour, Barby 0.5 mg VERSED given in lab by Barby Law BSRN in Left Antecubital via Peripheral IV. Ordered Milton Garcia. RADIAL COCKTAIL 01/21/2017 9:17:22 AM 5 mL (Bolus) Rittencorby, Barby 5 mL (Bolus) RADIAL COCKTAIL given in lab by Barby Law BSRN via Radial. Using [Solution Name] . Ordered by Milton Moody. nitrro 200mcg verapamil 2.5mg heparin 2900units HEPARIN 01/21/2017 9:33:10 AM 4400 units Rittenour, Barby 4400 units HEPARIN given in lab by Barby Law BSRN in Left Antecubital via Peripheral IV. Orde red by Milton Moody. VERSED 01/21/2017 9:39:12 AM 0.5 mg Rittenour, Barby 0.5 mg VERSED given in lab by Barby Law BSRN in Left Antecubital via Peripheral IV. Ordered Milton Garcia. FENTANYL 01/21/2017 9:40:00 AM 50 mcg Rittenour, Barby 50 mcg FENTANYL given in lab by Barby Law BSRN in Left Antecubital via Peripheral IV. Ordered by Milton Moody. VERSED 01/21/2017 10:01:43 AM 0.5 mg Rittenour, Barby 0.5 mg VERSED given in lab by Barby Law BSRN in Left Antecubital via Peripheral IV. Ordered Milton Garcia. FENTANYL 01/21/2017 10:02:00 AM 50 mcg Rittenour, Barby 50 mcg FENTANYL given in lab by Barby Law BSRN in Left Antecubital via Peripheral IV. Ordered by Milton Moody. Medication (Drip) Medication Time Given Dosage/Unit Concentration/Unit Diluent (ml) Solution IV Solutions 01/21/2017 8:44:26 AM 0 mL (IV) 500 NaCl .9 IV Solutions given in lab by Barby Law BSRN in Left Antecubital via Peripheral IV. Pump/Drip Flow = 20 ml/hr using NaCl .9. Ordered by Milton Moody. Initial Case Assessment Cardiovascular HR NIBP 75 171/94 Edema Present Skin color Skin None Normal Warm Dry Circulatory - Right Pulses Dorsalis Pedis Femoral Radial 3 3 2 Scale (0,1,2,3,4,d) Circulatory - Left Pulses Dorsalis Pedis Femoral Radial 3 3 Scale (0,1,2,3,4,d) Neurological State Oriented to time-place- Alert Moves all extremities person Respiration - General Respiration Rate SpO2 (%) (B/min) 18 99 Final Case Assessment Cardiovascular HR NIBP 70 138/92 Edema Present Skin color Skin None Normal Warm Dry Circulatory - Right Pulses Dorsalis Pedis Femoral Radial 3 3 2 Scale (0,1,2,3,4,d) Circulatory - Left Pulses Dorsalis Pedis Femoral Radial 3 3 Scale (0,1,2,3,4,d) Neurological State Oriented to time-place- Alert Moves all extremities person Respiration - General Respiration Rate SpO2 (%) (B/min) 16 92 Chronological Log Time Study Chronological Log 8:36:53 Patient arrived via Bed. 8:36:56 Patient Name, D.O.B, / Armband Verified By R.N. 8:40:13 Allens test performed on the right radial and ulnar artery. 8:42:18 Consent signed by the physician and the patient and verified by the Ambulance Assistant staff. 8:42:20 Patient has been NPO for More than 6Hrs. 8:42:22 Skin Breakdown- Vitals capture started with the following parameters, Patient=Adult, Interval=5 min, Initial Pr lmmxft=234 mmHg, 8:42:49 Deflation Rate=5 mmHg 8:44:04 HR=75 bpm, VXID=196/94 mmhg, SpO2=99.0 %, Resp=19 B/min, Pain=0, Navya=10, Bello=2 8:44:21 Berry Prominences Protected 8:44:24 A # 20 IV was noted in the Antecubital (left). Grade = 0 IV Solutions given in lab by Barby Law BSRN in Left Antecubital via Peripheral IV. Pump /Drip Flow = 20 ml/hr 8:44:26 using NaCl .9. Ordered by Milton Moody. 8:44:27 History and physical on the chart or being dictated. Assessment: Initial Case, HR=75 BPM, BRZJ=162/94 mmhg, Edema=None, Color=Normal, Skin = Warm, D ry Right Pulses: Luciano Ped=3, Femoral=3, Radial=2 8:44:36 Left Pulses: Luciano Ped=3, Femoral=3 Neurological: State=Alert, Ox3, VINES Respiration: Resp=18 B/min, SpO2=99 % 8:44:50 Reference ECG taken 8:48:28 HR=74 bpm, QPRH=094/99 mmhg, SpO2=98.0 %, Resp=17 B/min, Pain=0, Navya=10, Bello=2 8:53:27 HR=75 bpm, UPQR=610/99 mmhg, SpO2=98.0 %, Resp=15 B/min, Pain=0, Navya=10, Bello=2 8:58:28 HR=77 bpm, ARXR=770/98 mmhg, SpO2=98.0 %, Resp=13 B/min, Pain=0, Navya=10, Bello=2 9:02:47 Bilateral groins prepped with 2% chlorhexidine, and with a 3 min. waiting time. 9:03:00 Pressure channel 1 zeroed. 9:03:25 HR=75 bpm, MUOO=429/102 mmhg, SpO2=98.0 %, Resp=14 B/min, Pain=0, Navya=10, Bello=2 1 mg VERSED given in lab by Barby Law BSRN in Left Antecubital via Peripheral IV. Ordere d by Fransisco, 9:06:32 Milton. 50 mcg FENTANYL given in lab by Barby Law BSRN in Left Antecubital via Peripheral IV. Or dered by Fransisco, 9:07:04 Milton. 9:08:29 HR=76 bpm, CCXC=567/92 mmhg, SpO2=98.0 %, Resp=14 B/min, Pain=0, Navya=10, Bello=2 Time Out. Correct patient, correct procedure,correct physician, power injector not loaded with c ontrast with surgical 9:13:23 team present. Time Out Concurred by , individual staff in procedure 9:13:24 HR=80 bpm, APFE=612/127 mmhg, SpO2=95.0 %, Resp=10 B/min, Pain=0, Navya=10, Bello=2 9::24 Case Start 9:14:01 NIBP STAT measurement started. 10 mL 1% XYLOCAINE given in lab by Barby Law BSRN in Right Radial via Subcutaneous. Orde red by Fransisco, 9:14:16 Milton. 9:15:41 Access site was Radial Artery. 0.5 mg VERSED given in lab by Barby Law BSRN in Left Antecubital via Peripheral IV. Orde red by Fransisco, 9:17:12 Milton. A SHEATH, FR6 TRANSRADIAL SLENDER 10CM FR 6 was advanced into the Radial (right) using the Modif ied Seldinger 9:17:20 technique. 5 mL (Bolus) RADIAL COCKTAIL given in lab by Barby Law BSRN via Radial. Using [Solution Name]. Ordered by 9:17:22 Milton Moody. nitrro 200mcg verapamil 2.5mg heparin 2900units 9:18:25 HR=80 bpm, GCUW=002/94 mmhg, SpO2=94.0 %, Resp=16 B/min, Pain=0, Navya=10, Bello=2 A JR 4.0 INFINITI CATHETER FR 6 was advanced over a wire. OMNIPAQUE, 350 MG, 150ML 150ML was use d for 9:19:40 injections. Recorded Pressure: LV, HR=74, Condition=Condition 1 9:20:20 (Left Ventricle) LV 127/4/13 Recorded Pressure: LV, Ao, HR=82, Condition=Condition 1 9:20:38 (Left Ventricle) LV 135/5/13, (Aorta) Ao 138/80/108 Recorded Pressure: Ao, HR=86, Condition=Condition 1 9:21:46 (Aorta) Ao 123/78/99 9:21:57 The RCA was injected and visualized at various angles. OMNIPAQUE, 350 MG, 150ML 150ML used. After removing the current catheter a JL 3.5 INFINITI CATHETER FR 6 was advanced over a WIRE, EX CHANGE 260CM 9:22:53 3MMJ 260CM. 9:23:24 HR=90 bpm, GZPW=050/88 mmhg, SpO2=93 %, Resp=15 B/min, Pain=0, Navya=10, Bello=2 9:26:04 The LCA was injected and visualized at various angles. OMNIPAQUE, 350 MG, 150ML 150ML used. 9:29:04 HR=78 bpm, QJEM=014/88 mmhg, SpO2=92.0 %, Resp=14 B/min, Pain=0, Navya=10, Bello=2 4400 units HEPARIN given in lab by Barby Law BSRN in Left Antecubital via Peripheral IV. Ordered by Fransisco, 9:33:10 Milton. 9:33:28 HR=75 bpm, TOIG=426/86 mmhg, SpO2=94.0 %, Resp=13 B/min, Pain=0, Navya=10, Bello=2 9:37:30 Pressure channel 1 zeroed. 9:38:27 HR=77 bpm, QJYG=973/85 mmhg, SpO2=94.0 %, Resp=13 B/min, Pain=0, Navya=10, Bello=2 After removing the current catheter a XB 3.5 GUIDE CATHETER FR 6 was advanced over a WIRE, EXCHA NGE 260CM 9:38:27 3MMJ 260CM. 0.5 mg VERSED given in lab by Barby Law BSRN in Left Antecubital via Peripheral IV. Orde red by Fransisco, 9:39:12 Milton. 50 mcg FENTANYL given in lab by Barby Law BSRN in Left Antecubital via Peripheral IV. Or dered by Fransisco, 9:40:00 Milton. 9:44:01 HR=71 bpm, IHAH=617/84 mmhg, SpO2=95.0 %, Resp=19 B/min, Pain=0, Navya=10, Bello=2 9:45:20 A PRIME WIRE, VERRATA 185CM 185CM was inserted via Radial (right). 9:48:27 HR=74 bpm, YDUA=547/89 mmhg, SpO2=93.0 %, Resp=15 B/min, Pain=0, Navya=10, Bello=2 9:53:30 HR=71 bpm, NPKQ=220/88 mmhg, SpO2=94.0 %, Resp=14 B/min, Pain=0, Navya=10, Bello=2 9:58:19 Flow Wire was was placed in the LAD Mid. The FFR measures ~FFR~ percent. The IFR measures 0 .94 Percent. 9:58:31 HR=66 bpm, OBMZ=073/83 mmhg, SpO2=94.0 %, Resp=14 B/min, Pain=0, Navya=10, Bello=2 9:59:46 The PRIME WIRE, VERRATA 185CM 185CM was removed. 0.5 mg VERSED given in lab by Barby Law BSRN in Left Antecubital via Peripheral IV. Ord ered by Fransisco, 10:01:43 Milton. 50 mcg FENTANYL given in lab by Barby Law BSRN in Left Antecubital via Peripheral IV. O rdered by Fransisco, 10:02:00 Milton. 10:03:28 HR=69 bpm, WKGT=197/90 mmhg, SpO2=97.0 %, Resp=11 B/min, Pain=0, Navya=10, Bello=2 10:03:47 A WIRE, EXCHANGE 260CM 3MMJ 260CM was inserted via Radial (right). 10:03:58 Catheter was removed 10:06:07 Catheter(s) removed without difficulty Radial Compression Device Used. 8 mLs of air placed in BAND, RADIAL COMPRESSION TR SHORT 24 24C M. Affected 10:07:37 hand 96 % O2 saturation. 10:08:35 HR=70 bpm, ETXW=686/92 mmhg, SpO2=92.0 %, Resp=16 B/min, Pain=0, Navya=10, Bello=2 10:10:03 Case End 10:10:26 No case complications noted. 10:10:27 Cine recording checked. 10:10:32 Bedside Report will be given. 10:10:34 Contrast Scanned 10:10:40 A Left Heart Cath was performed. 10:13:25 Vitals capture stopped. Assessment: Final Case, HR=70 BPM, WHSQ=834/92 mmhg, Edema=None, Color=Normal, Skin = Warm, Dry Right Pulses: Luciano Ped=3, Femoral=3, Radial=2 10:13:30 Left Pulses: Luciano Ped=3, Femoral=3 Neurological: State=Alert, Ox3, VINES Respiration: Resp=16 B/min, SpO2=92 % 10:19:37 Patient moved to stretcher End Study - Contrast Media Used In Study Contrast Total Opened (mL) Total Used (mL) Total Wasted (mL) Omnipaque 90 90 0 End Study - Maximum Contrast Load Max Contrast Load (mL) 362.5 End Study - Radiation Exposure Fluoro Time (minutes) 12.6 End Study - Patient Disposition Complications Transferred To Telemetry Bed
[2017-01-21] MEDS ORDERED: MISC INFORMATION XX ONE (10:30)
[2017-01-21] MEDS ORDERED: amLODIPine BESYLATE 5 MG TAB PO SCH (10:45)
--- NOTE | 2017-01-21 11:33 | PD.CARD.PN ---
Subjective Subjective Remarks Post cath, doing well No chest pain, no shortness of breath Objective Medications Current Medications Medications (Trade) Dose Ordered Sig/Shanelle Route Start Time Stop Time Status Last Admin Sodium Chloride 2 ml 2 ml UNSCH PRN IVF 01/18/17 13:30 (NS 1000 ml Inj) 1,000 ml @ 100 mls/hr Q10H IV 01/18/17 17:20 01/20/17 19:20 (Tylenol) 650 mg Q4H PRN PO 01/18/17 17:30 (Zofran Inj) 4 mg Q6H PRN IVP 01/18/17 17:30 (Protonix) 40 mg DAILY PO 01/18/17 17:20 01/21/17 08:03 (Nitrostat Sl) 0.4 mg Q5M PRN SL 01/18/17 17:30 (Morphine Inj) 2 mg Q3H PRN IV PUSH 01/18/17 17:45 (Xanax) 0.5 mg Q8H PRN PO 01/19/17 08:30 01/21/17 08:03 (Lipitor) 40 mg DAILY PO 01/20/17 09:00 01/21/17 08:03 (Aspirin Chew) 81 mg DAILY CHEW 01/22/17 09:00 (Norvasc) 5 mg DAILY PO 01/21/17 10:45 Vital Signs / I&O Vital Signs Date Time Temp Pulse Resp B/P Pulse Ox O2 Delivery O2 Flow Rate FiO2 01/21/17 08:00 63 01/21/17 07:00 63 01/21/17 07:00 98.3 63 18 154/88 99 01/21/17 06:00 53 01/21/17 05:00 60 01/21/17 04:00 98.0 53 20 126/76 97 01/21/17 04:00 62 01/21/17 03:00 51 01/21/17 02:00 58 01/21/17 01:00 55 01/21/17 00:00 98.0 55 20 115/67 97 01/21/17 00:00 65 01/20/17 23:00 56 01/20/17 22:00 58 01/20/17 21:00 62 01/20/17 20:00 97.4 66 20 128/75 97 01/20/17 20:00 58 01/20/17 19:00 66 01/20/17 18:00 66 01/20/17 17:00 65 01/20/17 16:00 63 01/20/17 15:28 98.2 60 20 122/64 96 01/20/17 15:00 67 01/20/17 14:00 60 01/20/17 13:00 65 01/20/17 12:00 60 I/O 01/20/17 01/20/17 01/20/17 01/21/17 01/21/17 01/21/17 07:00 15:00 23:00 07:00 15:00 23:00 Intake Total 1210 ml 2175 ml 1592 ml Output Total 675 ml 875 ml 825 ml Balance 535 ml 1300 ml 767 ml Intake Oral 440 ml 975 ml 420 ml IV Total 770 ml 1200 ml 1172 ml Output Urine Total 675 ml 875 ml 825 ml # Bowel Movements 0 Physical Exam GENERAL: SKIN: Warm and dry. HEAD: Atraumatic. Normocephalic. EYES: Pupils equal and round. No scleral icterus. No injection or drainage. ENT: No nasal bleeding or discharge. Mucous membranes pink and moist. NECK: Trachea midline. No JVD. CARDIOVASCULAR: Regular rate and rhythm. RESPIRATORY: No accessory muscle use. Clear to auscultation. Breath sounds equal bilaterally. GASTROINTESTINAL: Abdomen soft, non-tender, nondistended. Hepatic and splenic margins not palpable. MUSCULOSKELETAL: Extremities without clubbing, cyanosis, or edema. No obvious deformities. Right radial with radial band NEUROLOGICAL: Awake and alert. No obvious cranial nerve deficits. Motor grossly within normal limits. Five out of 5 muscle strength in the arms and legs. Normal speech. PSYCHIATRIC: Appropriate mood and affect; insight and judgment normal. Laboratory Laboratory Tests Test 01/21/17 05:57 White Blood Count 8.8 TH/MM3 Red Blood Count 4.24 MIL/MM3 Hemoglobin 13.1 GM/DL Hematocrit 38.3 % Mean Corpuscular Volume 90.3 FL Mean Corpuscular Hemoglobin 31.0 PG Mean Corpuscular Hemoglobin 34.3 % Concent Red Cell Distribution Width 12.8 % Platelet Count 227 TH/MM3 Mean Platelet Volume 8.7 FL Neutrophils (%) (Auto) 66.5 % Lymphocytes (%) (Auto) 22.6 % Monocytes (%) (Auto) 8.3 % Eosinophils (%) (Auto) 1.7 % Basophils (%) (Auto) 0.9 % Neutrophils # (Auto) 5.8 TH/MM3 Lymphocytes # (Auto) 2.0 TH/MM3 Monocytes # (Auto) 0.7 TH/MM3 Eosinophils # (Auto) 0.1 TH/MM3 Basophils # (Auto) 0.1 TH/MM3 CBC Comment DIFF FINAL Differential Comment Sodium Level 142 MEQ/L Potassium Level 4.3 MEQ/L Chloride Level 108 MEQ/L Carbon Dioxide Level 26.9 MEQ/L Anion Gap 7 MEQ/L Blood Urea Nitrogen 14 MG/DL Creatinine 1.09 MG/DL Estimat Glomerular Filtration 72 ML/MIN Rate Random Glucose 105 MG/DL Calcium Level 8.1 MG/DL Assessment and Plan Problem List: (1) Chest pain (2) CAD (coronary artery disease) Assessment and Plan 1) Cardiac cath showing moderate CAD, no significant lesions Con't medical management ASA/Statin No BB due to borderline heart rate Added Norvasc 5mg for anti-hypertensive/anti-anginal 2) 2D echo pending Cardiovascular stable for discharge if no problems on echo, and 1 hour after TR band removed 3) Consider GI workup for possible cause of pain, especially with epigastric type pain with elevated Lipase 4) Tobacco cessation Milton Moody DO Jan 21, 2017 11:33
[2017-01-21] MEDS ORDERED: AMLO5 PO (17:56)
[2017-01-21] MEDS ORDERED: ASPI81CH25 CHEW (17:56)
[2017-01-21] MEDS ORDERED: ATOR40TA16 PO (17:56)
[2017-01-21] MEDS ORDERED: PANT40TA3 PO (17:56)
--- NOTE | 2017-01-21 18:29 | ECHRPT ---
Indication: cp CONCLUSIONS Normal left ventricular size. Wall thickness is measured at the upper limits of normal. The left ventricular systolic function is low normal with an estimated ejection fraction in the rang e of 50- 55%. Trace mitral valve regurgitation. No mitral valve stenosis. No aortic valve regurgitation. There is mild tricuspid valve regurgitation. The estimated pulmonary arterial pressure is _29_ mmHg. The pulmonary valve is not well visualized. BP: / HR: Rhythm: MEASUREMENTS (Male / Female) Normal Values Technical Quality:Good 2D ECHO LV Diastolic Diameter PLAX 4.6 cm 4.2 - 5.9 / 3.9 - 5.3 cm LV Systolic Diameter PLAX 3.6 cm IVS Diastolic Thickness 1.1 cm 0.6 - 1.0 / 0.6 - 0.9 cm LVPW Diastolic Thickness 0.9 cm 0.6 - 1.0 / 0.6 - 0.9 cm LV Relative Wall Thickness 0.4 RV Internal Dim ED PLAX 2.5 cm M-MODE Aortic Root Diameter MM 3.3 cm LA Systolic Diameter MM 3.5 cm LA Ao Ratio MM 1.1 AV Cusp Separation MM 1.9 cm DOPPLER Mitral E Point Velocity 81.9 cm/s Mitral A Point Velocity 77.0 cm/s Mitral E to A Ratio 1.1 LV E' Lateral Velocity 13.1 cm/s Mitral E to LV E' Lateral Ratio 6.3 LV E' Septal Velocity 13.2 cm/s Mitral E to LV E' Septal Ratio 6.2 TR Peak Velocity 271.0 cm/s TR Peak Gradient 29.4 mmHg FINDINGS LEFT VENTRICLE Normal left ventricular size. Wall thickness is measured at the upper limits of normal. The left ventricular systolic function is low normal with an estimated ejection fraction in the rang e of 50- 55%. RIGHT VENTRICLE Normal right ventricular size and systolic function. LEFT ATRIUM The left atrial size is normal. RIGHT ATRIUM The right atrial size is normal. ATRIAL SEPTUM Normal atrial septal thickness without atrial level shunting by limited color doppler interrogation. AORTA The aortic root and proximal ascending aorta are normal in size on limited imaging. MITRAL VALVE Structurally normal mitral valve. Trace mitral valve regurgitation. No mitral valve stenosis. AORTIC VALVE Trileaflet aortic valve. No aortic valve regurgitation. TRICUSPID VALVE Structurally normal tricuspid valve. There is mild tricuspid valve regurgitation. The estimated pulmonary arterial pressure is _29_ mmHg. PULMONARY VALVE The pulmonary valve is not well visualized. VESSELS The inferior vena cava is normal in size. PERICARDIUM No pericardial effusion. Eliana Guardado MD, FACC (Electronically Signed) Final Date:21 January 2017 18:28
--- NOTE | 2017-01-21 21:03 | MA ---
cc: SAGE ROWLAND DO DATE: January 21, 2017 PROCEDURE Left heart catheterization, coronary angiogram, moderate sedation 60 minutes, IFR of LAD. PREPROCEDURE DIAGNOSIS Chest pain, abnormal stress test (moderate risk stratification) POSTPROCEDURE DIAGNOSIS Moderate coronary artery disease, tobacco abuse, symptoms possibly due to GI. MEDICATIONS 1. Verapamil 2.5 mg. 2. Nitro 200 mcg. 3. Heparin 7300 units 4. Versed 2.5 mg. 5. Fentanyl 150 mcg. CONTRAST USED 90 cc FLUOROSCOPY TIME 12.6 minutes. SEDATION Moderate sedation 60 minutes. PROCEDURAL SUMMARY Blas Faustin is a pleasant 51-year-old male who presented to [facility] emergency room due to chest pain. He underwent pharmacologic nuclear stress testing which showed possible anterior and anterior lateral ischemia and because of this he was recommended cardiac catheterization. Risks, benefits and alternatives were explained to him and he consented as such. He was brought to lab and prepped in the usual sterile fashion. Right radial artery was accessed using a modified Seldinger technique and placement of a 5/6 Arabic sheath. This was easily aspirated and flushed. The JR-4 was advanced over a J-wire to the ascending aorta and across the aortic valve for measurement of left ventricular pressure. This was pulled back across the aortic valve showing no significant gradient of aortic stenosis. JR-4 was then used for selective angiography of the right coronary artery. JR-4 was then exchanged for a JL-3.5. This was used for selective angiography of the left coronary system. As there was concern for possible ischemia on the stress test of the anterior and anterior lateral although there only appeared to be moderate disease, I felt that this should be further evaluated with IFR. The patient was given additional heparin for an anticoagulant. JL-3.5 was exchanged for an XB 3.5 guide. The patient had significant spasm and was given additional verapamil and fentanyl. XB 3.5 was engaged in the left main and a volcano wire was placed into the distal LAD. IFR was measured at 0.94 showing no significant stenosis. [place] wire was removed and angiogram showed no disruption of the coronary anatomy. On removal of the XB guide, the patient had further spasm and was given additional Versed and fentanyl. A radial band was placed across the arteriotomy site for hemostasis. Reverse Barbeau was used for patent hemostasis. The patient left the slab puller cardiovascularly stable. FINDINGS Left main: Normal size vessel with adequate reflux. It bifurcates into an LAD and circumflex. No significant disease. LAD: Overall small to moderate size with tortuosity throughout. Proximal portion has diffuse 30% disease. The [id number]-al-euvhob is significantly tortuous with multiple lesions of 40% up to 50%. It supplies to small diagonals. Left circumflex is a normal-size vessel with a 30-40% lesion in the AV groove circ. It supplies a small first obtuse marginal with two large second and third obtuse marginals with no significant disease. RCA is a small to moderate size vessel with a 30% lesion in the mid portion. It is a dominant vessel by nature with no significant disease distally. LVEDP 13. IFR of LAD, 0.94 showing no significant stenosis. IMPRESSION 1. Moderate coronary artery disease by cardiac catheterization. 2. Abnormal stress test showing anterior and anterior lateral ischemia with IFR of LAD (0.94) showing no significant physiologic stenosis. 3. Tobacco abuse. 4. Possible symptoms due to GI. RECOMMENDATIONS 1. Mr. Faustin appears to have moderate coronary artery disease and for he should have aggressive medical management. He will continue aspirin 81 milligrams daily and statin therapy. As his blood pressure has been somewhat elevated, I have placed him on Norvasc for its antihypertensive and antianginal capabilities. 2. He will have an echo to look at his overall left ventricular function, cardiac structure and possible valvulopathies. 3. From a cardiovascular standpoint, he can be discharged one hour after his TR band is removed if stable and his echo shows no significant complications. 4. I did speak to the hospitalist team about considering GI workup whether inpatient or outpatient as his symptoms may be due to this. Thank you for allowing me to see Blas Faustin. If there are any questions please do not hesitate to call. Sage Rowland DO VGP/ARELI /7:53 PM /8:35 PM
[2017-01-22] MEDS ORDERED: ASPIRIN 81 MG CHEW TAB CHEW SCH (09:00)
== END 2017-01-21 18:50 | disposition home or self-care (01) ==
LOC: PHED 13:04 → PHEDA 16:05 → PHICU 20:08 → PH5A 23:40 → HCIN 01-19 19:06
PROVIDERS: ADMIT Hospitalist; ATTEND Hospitalist
DX: I25.10 Atherosclerotic heart disease of native coronary artery without angina pectoris (principal); R07.89 Other chest pain; K85.90 Acute pancreatitis without necrosis or infection, unspecified; R74.8 Abnormal levels of other serum enzymes; E78.1 Pure hyperglyceridemia; F17.210 Nicotine dependence, cigarettes, uncomplicated; R94.39 Abnormal result of other cardiovascular function study; F41.9 Anxiety disorder, unspecified; Z79.899 Other long term (current) drug therapy; Z86.73 Personal history of transient ischemic attack (TIA), and cerebral infarction without residual deficits
CPT/HCPCS: 71010; 74177; 76705; 78452; 80048; 80053; 80061; 82550; 82552; 83690; 83735; 84484; 85025; 85610; 85730; 93005; 93017; 93306; 93454; 93571; 96360; 99285; A9502; C1769; C1887; C1893; G0378; J1644; J2250; J2785; J3010; J7030; Q9967

== ENCOUNTER 2017-05-05 11:04 | Observation (INO) | payer OTHER ==
[~2017-05-05] VITALS: Ht 172.7 cm; Wt 70.0 kg
[2017-05-05] VITALS (9 sets, daily range): BP systolic 125–176; BP diastolic 69–104; PULSE 63–88; RESP 14–19; TEMP 98–98.6; O2SAT 96–100
[~2017-05-05 11:04] MED LIST: AMLO5 PO; ASPI81CH25 CHEW; ATOR40TA16 PO; PANT40TA3 PO
--- NOTE | 2017-05-05 11:36 | PD ---
HPI Chief Complaint: Cardiac Complaint Time Seen by Provider: 11:20 Travel History International Travel<30 days: No Contact w/Intl Traveler<30days: No Traveled to known affect area: No History of Present Illness HPI This is a 52-year-old male with history of tobacco abuse, anxiety, presents for evaluation of chest pain. Reports that at 7 AM this morning he was driving towards [place] when he began feeling lightheaded and rinsing his substernal chest pressure. He endorses concurrent nausea. He took one of his prescription Xanax and now presents for evaluation. His substernal chest pressure he describes as mild, constant but resolved just prior to this examination. Endorses that he had some associated dyspnea which is also resolved. He is currently asymptomatic. He reports that he had similar discomfort when he was admitted here on January 18. 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) Diminished Hearing: No Endocrine: No Genitourinary: Yes Immune Disorder: No Kidney Stones: No Musculoskeletal: No Neurologic: No Psychiatric: No Reproductive: No Respiratory: No Immunizations Current: Yes Renal Failure: No Triglycerides - High: Yes Past Surgical History Abdominal Surgery: No AICD: No Appendectomy: Yes Arteriovenous Shunt: No Cardiac Surgery: No Ear Surgery: No Endocrine Surgery: No Eye Surgery: No Genitourinary Surgery: Yes Gynecologic Surgery: No Insulin Pump: No Joint Replacement: No Oral Surgery: No Pacemaker: No Thoracic Surgery: No Other Surgery: Yes Social History Alcohol Use: Yes (beer occ ) Tobacco Use: Yes Substance Use: No Allergies-Medications (Allergen,Severity, Reaction): Coded Allergies: No Known Allergies (Unverified , 01/18/17) Reported Meds & Prescriptions Reported Meds & Active Scripts Active Pantoprazole (Pantoprazole Sodium) 40 Mg Tab 40 Mg PO DAILY 30 Days Atorvastatin (Atorvastatin Calcium) 40 Mg Tab 40 Mg PO DAILY 30 Days Aspirin Low Strength (Aspirin) 81 Mg Chew 81 Mg CHEW DAILY 30 Days Norvasc (Amlodipine Besylate) 5 Mg Tab 5 Mg PO DAILY 30 Days Reported Xanax (Alprazolam) 0.25 Mg Tab 0.25 Mg PO DAILY PRN Review of Systems Except as stated in HPI: all other systems reviewed are Neg Physical Exam Narrative GENERAL: He has developed well-nourished male who appears mildly anxious on initial examination. SKIN: Warm and dry. HEAD: Atraumatic. Normocephalic. EYES: Pupils equal and round. No scleral icterus. No injection or drainage. ENT: No nasal bleeding or discharge. Mucous membranes pink and moist. NECK: Trachea midline. No JVD. CARDIOVASCULAR: Regular rate and rhythm. No murmur appreciated. RESPIRATORY: No accessory muscle use. Clear to auscultation. Breath sounds equal bilaterally. No crackles no wheezing or rhonchi GASTROINTESTINAL: Abdomen soft, non-tender, nondistended. Hepatic and splenic margins not palpable. MUSCULOSKELETAL: No obvious deformities. No clubbing. No cyanosis. No edema. NEUROLOGICAL: Awake and alert. No obvious cranial nerve deficits. Motor grossly within normal limits. Normal speech. PSYCHIATRIC: Appropriate mood and affect; insight and judgment normal. Data Data Last Documented VS Vital Signs Date Time Temp Pulse Resp B/P (MAP) Pulse Ox O2 Delivery O2 Flow Rate FiO2 05/05/17 11:48 80 141/69 (93) 05/05/17 11:27 100 Room Air 05/05/17 11:25 2.00 05/05/17 11:24 16 05/05/17 11:05 98.6 Orders Orders Electrocardiogram (05/05/17 11:31) Basic Metabolic Panel (Bmp) (05/05/17 11:31) Ckmb (Isoenzyme) Profile (05/05/17 11:31) Complete Blood Count With Diff (05/05/17 11:31) Magnesium (Mg) (05/05/17 11:31) Prothrombin Time / Inr (Pt) (05/05/17 11:31) Act Partial Throm Time (Ptt) (05/05/17 11:31) Troponin I (05/05/17 11:31) Lipase (05/05/17 11:31) Chest, Single Ap (05/05/17 11:31) Ecg Monitoring (05/05/17 11:31) Bilateral Bp Monitoring (05/05/17 11:31) Iv Access Insert/Monitor (05/05/17 11:31) Oximetry (05/05/17 11:31) Oxygen Administration (05/05/17 11:31) Aspirin Chew (Aspirin Chew) (05/05/17 11:45) Sodium Chloride 0.9% Flush (Ns Flush) (05/05/17 11:45) Sodium Chlorid 0.9% 500 Ml Inj (Ns 500 M (05/05/17 11:45) CKMB (05/05/17 11:25) CKMB% (05/05/17 11:25) Admit Order (Ed Use Only) (05/05/17 12:58) Labs Laboratory Tests Test 05/05/17 11:25 White Blood Count 11.8 TH/MM3 Red Blood Count 4.84 MIL/MM3 Hemoglobin 14.7 GM/DL Hematocrit 43.2 % Mean Corpuscular Volume 89.4 FL Mean Corpuscular Hemoglobin 30.3 PG Mean Corpuscular Hemoglobin Concent 33.9 % Red Cell Distribution Width 13.4 % Platelet Count 284 TH/MM3 Mean Platelet Volume 8.9 FL Neutrophils (%) (Auto) 69.9 % Lymphocytes (%) (Auto) 21.9 % Monocytes (%) (Auto) 7.1 % Eosinophils (%) (Auto) 0.5 % Basophils (%) (Auto) 0.6 % Neutrophils # (Auto) 8.3 TH/MM3 Lymphocytes # (Auto) 2.6 TH/MM3 Monocytes # (Auto) 0.8 TH/MM3 Eosinophils # (Auto) 0.1 TH/MM3 Basophils # (Auto) 0.1 TH/MM3 CBC Comment DIFF FINAL Differential Comment Prothrombin Time 11.4 SEC Prothromb Time International Ratio 1.0 RATIO Activated Partial Thromboplast Time 23.4 SEC Blood Urea Nitrogen 14 MG/DL Creatinine 1.15 MG/DL Random Glucose 108 MG/DL Calcium Level 9.0 MG/DL Magnesium Level 2.0 MG/DL Sodium Level 138 MEQ/L Potassium Level 3.9 MEQ/L Chloride Level 103 MEQ/L Carbon Dioxide Level 29.1 MEQ/L Anion Gap 6 MEQ/L Estimat Glomerular Filtration Rate 67 ML/MIN Total Creatine Kinase 118 U/L Creatine Kinase MB 1.7 NG/ML Troponin I LESS THAN 0.02 NG/ML Lipase 166 U/L MDM Medical Decision Making Medical Screen Exam Complete: Yes Emergency Medical Condition: Yes Medical Record Reviewed: Yes Interpretation(s) EKG sinus rhythm rate 71 Differential Diagnosis Anxiety, acute coronary syndrome, angina, pericarditis, myocarditis, pneumothorax, pulmonary embolism Narrative Course The patient's workup from his January hospitalization has been reviewed. He underwent a cardiac catheterization which revealed moderate coronary artery disease with no significant lesions. Cardiology recommended medical management with aspirin statins as well as Norvasc for antihypertensive therapy. He was found to have an elevated lipase during his hospitalization. The patient will be placed on ECG monitoring pulse oximetry. A 12-lead EKG will be obtained. Plan is for basic lab work, chest x-ray. He will be given a full dose aspirin. Reassuringly the patient's initial workup is unremarkable. Given his history of moderate coronary artery disease on recent cardiac catheterization, plan will be to admit the patient and the chest pain center for serial cardiac enzymes and rule out purposes. He is agreeable. Diagnosis Primary Impression: Chest pain Qualified Codes: R07.9 - Chest pain, unspecified Admitting Information Admitting Physician Requests: Jacky Weiner May 05, 2017 11:36
[2017-05-05] MEDS ORDERED: SODIUM CHLORIDE 0.9% FLUSH 10 ML FLUSH IVF PRN (11:45)
[2017-05-05] MEDS ORDERED: ASPIRIN 81 MG CHEW TAB PO ONE (11:45)
[2017-05-05] MEDS ORDERED: SODIUM CHLORID 0.9% 500 ML INJ 500 ML IV ONE (11:45)
--- NOTE | 2017-05-05 11:58 | RADRPT ---
EXAM DATE/TIME: 05/05/2017 11:47 [facility] COMPARISON: CHEST SINGLE AP, January 18, 2017, 13:53. INDICATIONS : Patient states chest pains and syncope. MEDICAL HISTORY : None. SURGICAL HISTORY : None. ENCOUNTER: Initial ACUITY: 3 days PAIN SCORE: 3/10 LOCATION: Bilateral chest FINDINGS: A single view of the chest demonstrates the lungs to be symmetrically aerated without evidence of mas s, infiltrate or effusion. The cardiomediastinal contours are unremarkable. Osseous structures are intact. CONCLUSION: 1. No acute cardiopulmonary disease. Laron Xiao MD on May 05, 2017 at 11:56 Board Certified Radiologist. This report was verified electronically.
[2017-05-05 12:23] LABS: AUTOMATED NEUTROPHIL # 8.3 TH/MM3 (1.8-7.7); BASOPHIL # 0.1 TH/MM3 (0-0.2); BASOPHIL % 0.6 % (0.0-2.0); EOSINOPHIL # 0.1 TH/MM3 (0-0.4); EOSINOPHIL % 0.5 % (0.0-4.0); HEMATOCRIT 43.2 % (39.0-51.0); HEMO FLAGS DIFF FINAL; LYMPH % 21.9 % (9.0-44.0); LYMPHOCYTE # 2.6 TH/MM3 (1.0-4.8); MEAN CELL VOLUME 89.4 FL (80.0-100.0); MEAN CORPUSCULAR HEMOGLOBIN 30.3 PG (27.0-34.0); MEAN CORPUSCULAR HGB CONC 33.9 % (32.0-36.0); MONO % 7.1 % (0.0-8.0); NEUT % 69.9 % (16.0-70.0); PLATELET COUNT 284 TH/MM3 (150-450); RED BLOOD COUNT 4.84 MIL/MM3 (4.50-5.90); RED CELL DISTRIBUTION WIDTH 13.4 % (11.6-17.2); WHITE BLOOD COUNT 11.8 TH/MM3 (4.0-11.0)
[2017-05-05] MEDS ORDERED: ALPR.25 PO (12:28)
[2017-05-05 12:32] LABS: APTT (PATIENT) 23.4 SEC (24.3-30.1); PROTHROMBIN TIME - PATIENT 11.4 SEC (9.8-11.6)
[2017-05-05 12:40] LABS: ANION GAP 6 MEQ/L (5-15); BICARBONATE 29.1 MEQ/L (21.0-32.0); BLOOD UREA NITROGEN 14 MG/DL (7-18); CHLORIDE 103 MEQ/L (98-107); GLOMERULAR FILTRATION RATE 67 ML/MIN (>89); POTASSIUM 3.9 MEQ/L (3.5-5.1); SODIUM (NA) 138 MEQ/L (136-145)
[2017-05-05 12:44] LABS: CREATINE KINASE 118 U/L (39-308)
[2017-05-05 12:56] LABS: CKMB 1.7 NG/ML (0.5-3.6)
[2017-05-05] MEDS ORDERED: ACETAMINOPHEN 500 MG CPLT PO PRN (13:30)
[2017-05-05] MEDS ORDERED: ONDANSETRON HCL 4 MG/2 ML VIAL IV PUSH PRN (13:30)
[2017-05-05] MEDS ORDERED: NITROGLYCERIN 0.4 MG SL 25 TABS/BTL SL PRN (13:30)
--- NOTE | 2017-05-05 14:17 | HHI.HP ---
HPI Primary Care Physician Katelynn Hand D.O. Chief Complaint Chest tightness History of Present Illness 52-year-old male with history of known coronary artery disease and anxiety presents to emergency room for further evaluation chest tightness. Onset 7 AM while driving to [place]. Characterized as a gradual chest tightness, location substernal. No radiation. Duration 10 minutes. Associated symptoms included nausea, feelings of "not getting enough air" however denies shortness of breath, and lightheadedness. No known precipitating factors. Endorses normal panic attacks heart also "races," stating this morning episodes did not include pounding or racing heart rate. Relieving factors include deep breaths. Pulled over, took deep breaths, and a Xanax. Once feeling better, returned home and called PCP to notify of event. PCP recommended to go to ER. Currently he is chest pain free. Review of Systems General: No fatigue,weakness, fever, chills, or recent illness. Has been a general state of health. Reports compliance with medication status post area catheterization in January. HEENT: No YAN CV: As stated above. No current chest tightness, CP, or pressure. RESP: No SOB, cough, wheeze, or recent respiratory illness. GI: Nausea as resolved. No vomiting or bowel changes. : No dysuria EXT: No lower leg edema, no paraesthesias MS: No discomfort, change in ROM, injury, or trauma. NEURO: No change in memory, difficulty with balance, LOC, or motor/sensory deficits PSYCH: Reports longstanding anxiety and panic attacks. Reports current work related stress levels. Past Family Social History Allergies: Coded Allergies: No Known Allergies (Unverified , 01/18/17) Past Medical History Anxiety, panic attacks, coronary artery disease Past Surgical History Bladder surgery, Knee surgery Reported Medications Reported Meds & Active Scripts Active Pantoprazole (Pantoprazole Sodium) 40 Mg Tab 40 Mg PO DAILY 30 Days Atorvastatin (Atorvastatin Calcium) 40 Mg Tab 40 Mg PO DAILY 30 Days Aspirin Low Strength (Aspirin) 81 Mg Chew 81 Mg CHEW DAILY 30 Days Norvasc (Amlodipine Besylate) 5 Mg Tab 5 Mg PO DAILY 30 Days Reported Xanax (Alprazolam) 0.25 Mg Tab 0.25 Mg PO DAILY PRN Active Ordered Medications Current Medications Medications (Trade) Dose Ordered Sig/Shanelle Route Start Time Stop Time Status Last Admin (NS Flush) 2 ml UNSCH PRN IVF 05/05/17 11:45 05/05/17 11:46 (NS Flush) 2 ml BID IV FLUSH 05/05/17 21:00 (Tylenol) 500 mg Q4H PRN PO 05/05/17 13:30 (Zofran Inj) 4 mg Q6H PRN IV PUSH 05/05/17 13:30 (Nitrostat Sl) 0.4 mg Q5M PRN SL 05/05/17 13:30 (Aspirin) 325 mg DAILY PO 05/06/17 09:00 Family History Noncontributory for early onset cardiovascular disease. Mother and all 3 sisters have diabetes. Maternal uncle coronary artery stents in early 50s. Father young age from leukemia. Social History Known coronary artery disease. No known hypertension, hyperlipidemia, or diabetes. Appropriately on statin therapy. Current smoker one half pack/daily. Rare alcohol use. Denies any illegal drug use. . Past cardiac testing 01/19/2017 Lexiscan-reversible stress-induced hypoperfusion involving anterior and anterior lateral jose of the left ventricle. Small persistent defect and inferoseptal wall. EF 51%. 01/21/2017 Cardiac catheterization (Dr. Milton Moody) impression 1. Moderate coronary artery disease by cardiac catheterization. 2. Abnormal stress testing showing anterior and anterior lateral ischemia with IFR of LAD showing no significant physiological stenosis. 3. Tobacco abuse. 4. Possible symptoms due to GI. Recommendations aggressive medical management. Physical Exam Vital Signs Vital Signs Date Time Temp Pulse Resp B/P (MAP) Pulse Ox O2 Delivery O2 Flow Rate FiO2 05/05/17 11:48 80 141/69 (93) 05/05/17 11:29 176/99 (124) 05/05/17 11:27 100 Room Air 05/05/17 11:25 98 Nasal Cannula 2.00 05/05/17 11:24 88 16 176/104 (128) 96 05/05/17 11:05 98.6 74 14 148/90 (109) 97 Physical Exam GENERAL: Alert WN, WD, NAD, male HEAD: NC, AT EYES: Sclera clear, conjunctiva without injection, pupils equal and round ENT: Mucous membranes pink and moist NECK: Supple CV: RRR, without murmur, rub, gallop, no JVD, S1-S2 no S3-S4. No carotid bruits. RESP: Clear lungs throughout bilateral, no crackles, wheeze, rhonchi, symmetrical chest rise, nonlabored, able to speak in full sentences ABD: Soft, NT, ND, positive bowel tones EXT: Pulses +24, no dependent edema MS: Normal tone 4 extremities, nontender, no obvious deformities, full range of motion NEURO: CN II through CN XII grossly intact, motor strength 5/5 PSYCH: A+O 3, flat affect, appropriate speech, appropriate mood and affect, insight and judgment SKIN: Normal turgor, normal texture, no lesions, no rashes Laboratory Laboratory Tests Test 05/05/17 11:25 White Blood Count 11.8 Red Blood Count 4.84 Hemoglobin 14.7 Hematocrit 43.2 Mean Corpuscular Volume 89.4 Mean Corpuscular Hemoglobin 30.3 Mean Corpuscular Hemoglobin Concent 33.9 Red Cell Distribution Width 13.4 Platelet Count 284 Mean Platelet Volume 8.9 Neutrophils (%) (Auto) 69.9 Lymphocytes (%) (Auto) 21.9 Monocytes (%) (Auto) 7.1 Eosinophils (%) (Auto) 0.5 Basophils (%) (Auto) 0.6 Neutrophils # (Auto) 8.3 Lymphocytes # (Auto) 2.6 Monocytes # (Auto) 0.8 Eosinophils # (Auto) 0.1 Basophils # (Auto) 0.1 CBC Comment DIFF FINAL Differential Comment Prothrombin Time 11.4 Prothromb Time International Ratio 1.0 Activated Partial Thromboplast Time 23.4 Blood Urea Nitrogen 14 Creatinine 1.15 Random Glucose 108 Calcium Level 9.0 Magnesium Level 2.0 Sodium Level 138 Potassium Level 3.9 Chloride Level 103 Carbon Dioxide Level 29.1 Anion Gap 6 Estimat Glomerular Filtration Rate 67 Total Creatine Kinase 118 Creatine Kinase MB 1.7 Troponin I LESS THAN 0.02 Lipase 166 Result Diagram: 05/05/17 1125 05/05/17 1125 Imaging Last Impressions Chest X-Ray 05/05/17 1131 Signed Impressions: Service Date/Time: Friday, May 05, 2017 11:47 - CONCLUSION: 1. No acute cardiopulmonary disease. Laron Xiao MD Course EKG Normal sinus rhythm, normal axis, no ST or T-segment changes Caprini VTE Risk Assessment Caprini VTE Risk Assessment: No/Low Risk (score <= 1) Caprini Risk Assessment Model Point Value = 1 Point Value = 2 Point Value = 3 Point Value = 5 Age 41-60 Minor surgery BMI > 25 kg/m2 Swollen legs Varicose veins or History of unexplained or recurrent spontaneous Oral contraceptives or hormone replacement Sepsis (< 1 month) Serious lung disease, including pneumonia (< 1 month) Abnormal pulmonary function Acute myocardial infarction Congestive heart failure (< 1 month) History of inflammatory bowel disease Medical patient at bed rest Age 61-74 Arthroscopic surgery Major open surgery (> 45 min) Laparoscopic surgery (> 45 min) Malignancy Confined to bed (> 72 hours) Immobilizing plaster cast Central venous access Age >= 75 History of VTE Family history of VTE Factor V Leiden Prothrombin [id number] Lupus anticoagulant Anticardiolipin antibodies Elevated serum homocysteine Heparin-induced thrombocytopenia Other congenital or acquired thrombophilia Stroke (< 1 month) Elective arthroplasty Hip, pelvis, or leg fracture Acute spinal cord injury (< 1 month) Prophylaxis Regimen Total Risk Factor Score Risk Level Prophylaxis Regimen 0-1 Low Early ambulation 2 Moderate Order ONE of the following: *Sequential Compression Device (SCD) *Heparin 5000 units SQ BID 3-4 Higher Order ONE of the following medications: *Heparin 5000 units SQ TID *Enoxaparin/Lovenox 40 mg SQ daily (WT < 150 kg, CrCl > 30 mL/min) *Enoxaparin/Lovenox 30 mg SQ daily (WT < 150 kg, CrCl > 10-29 mL/min) *Enoxaparin/Lovenox 30 mg SQ BID (WT < 150 kg, CrCl > 30 mL/min) AND/OR *Sequential Compression Device (SCD) 5 or more Highest Order ONE of the following medications: *Heparin 5000 units SQ TID (Preferred with Epidurals) *Enoxaparin/Lovenox 40 mg SQ daily (WT < 150 kg, CrCl > 30 mL/min) *Enoxaparin/Lovenox 30 mg SQ daily (WT < 150 kg, CrCl > 10-29 mL/min) *Enoxaparin/Lovenox 30 mg SQ BID (WT < 150 kg, CrCl > 30 mL/min) AND *Sequential Compression Device (SCD) Assessment and Plan Assessment and Plan #1 Chest pain-admitted chest pain center. Ruled out with 3 sets of EKGs and cardiac enzymes. Seen and evaluated by Dr. Laron Dahl. After being ruled out with 3 sets of EKGs and cardiac enzymes plan to discharge home with follow- up with PCP. Recent cardiac catheterization in January 2017 showing moderate coronary artery disease with no intervention required. Reassurance provided to both patient and , with time for questions and answers provided. #2 Anxiety-discussed episode most likely related to anxiety #3 History of CAD-continue statin, aspirin, and amlodipine #4 Tobacco use-strongly encouraged and stressed the importance of tobacco sensation. Instructed him to quit smoking. #5 Hypertension-Amlodipine 5mg PO x1 dose now, continue to monitor Megha Madera May 05, 2017 14:17
[2017-05-05] MEDS ORDERED: amLODIPine BESYLATE 5 MG TAB PO ONE (15:00)
[2017-05-05 15:57] LABS: CREATINE KINASE 93 U/L (39-308)
[2017-05-05 18:16] LABS: CREATINE KINASE 86 U/L (39-308)
--- NOTE | 2017-05-05 18:25 | HHI.DCPOC ---
Discharge Care Plan Diagnosis: (1) Atypical chest pain (2) Hx of coronary artery disease (3) Situational stress (4) Tobacco abuse Goals to Promote Your Health * To prevent worsening of your condition and complications * To maintain your health at the optimal level Directions to Meet Your Goals Take your medications as prescribed Follow your dietary instruction Follow activity as directed Keep your appointments as scheduled Take your immunizations and boosters as scheduled If your symptoms worsen call your PCP, if no PCP go to Urgent Care Center or Emergency Room Smoking is Dangerous to Your Health. Avoid second hand smoke Call the 24-hour hour crisis hotline for domestic abuse at Megha Madera May 05, 2017 18:25
[2017-05-05] MEDS ORDERED: SODIUM CHLORIDE 0.9% FLUSH 10 ML FLUSH IV FLUSH SCH (21:00)
[2017-05-06] MEDS ORDERED: ASPIRIN 325 MG TAB PO SCH (09:00)
[2017-05-06] MEDS ORDERED: ATORVASTATIN 40 MG TAB PO SCH (09:00)
[2017-05-06] MEDS ORDERED: amLODIPine BESYLATE 5 MG TAB PO SCH (09:00)
[2017-05-06] MEDS ORDERED: PANTOPRAZOLE SOD 40 MG DELAYED RELEASE TAB PO SCH (09:00)
--- NOTE | 2017-05-06 14:38 | EKG ---
Date Performed: 05/05/2017 Time Performed: 17:48:11 PTAGE: 52 years EKG: Sinus rhythm NORMAL ECG Since PREVIOUS TRACING , no significant change noted PREVIOUS TRACIN05/05/2017 14.46 DOCTOR: Eliana Guardado Interpretating Date/Time 05/06/2017 14:36:56
--- NOTE | 2017-05-06 17:28 | EKG ---
Date Performed: 05/05/2017 Time Performed: 14:46:25 PTAGE: 52 years EKG: Sinus rhythm NORMAL ECG Since PREVIOUS TRACING , no significant change noted PREVIOUS TRACIN05/05/2017 11.27 DOCTOR: Eliana Guardado Interpretating Date/Time 05/06/2017 17:27:15
--- NOTE | 2017-05-06 17:32 | EKG ---
Date Performed: 05/05/2017 Time Performed: 11:27:15 PTAGE: 52 years EKG: Sinus rhythm NORMAL ECG Since PREVIOUS TRACING , no significant change noted PREVIOUS TRACIN01/18/2017 13.15 DOCTOR: Eliana Guardado Interpretating Date/Time 05/06/2017 17:31:01
== END 2017-05-05 19:26 | disposition home or self-care (01) ==
LOC: NEPC 11:04 → NEDA 12:59 → NEPFCDU 16:04
PROVIDERS: ADMIT Internal Medicine Cardiovascular Disease; ATTEND Internal Medicine Cardiovascular Disease
DX: R07.89 Other chest pain (principal); R94.39 Abnormal result of other cardiovascular function study; I25.10 Atherosclerotic heart disease of native coronary artery without angina pectoris; I10 Essential (primary) hypertension; F41.0 Panic disorder [episodic paroxysmal anxiety]; F17.200 Nicotine dependence, unspecified, uncomplicated; Z79.82 Long term (current) use of aspirin; Z86.73 Personal history of transient ischemic attack (TIA), and cerebral infarction without residual deficits
CPT/HCPCS: 71010; 80048; 82550; 82552; 83690; 83735; 84484; 85025; 85610; 85730; 93005; 96360; 99285; G0378; J7040

== ENCOUNTER 2017-06-23 17:55 | Observation (INO) | payer OTHER ==
[~2017-06-23] VITALS: Ht 172.7 cm; Wt 68.2 kg
[~2017-06-23 17:55] MED LIST changes: +ALPR.25 PO
[2017-06-23 17:57] VITALS: BP 156/79; PULSE 80; RESP 16; TEMP 98.4; O2SAT 96
[2017-06-23 18:42] LABS: BASOPHIL # 0.1 TH/MM3 (0-0.2); BASOPHIL % 0.6 % (0.0-2.0); EOSINOPHIL % 0.3 % (0.0-4.0); HEMATOCRIT 41.4 % (39.0-51.0); HEMO FLAGS DIFF FINAL; LYMPH % 16.2 % (9.0-44.0); LYMPHOCYTE # 2.3 TH/MM3 (1.0-4.8); MEAN CELL VOLUME 90.4 FL (80.0-100.0); MEAN CORPUSCULAR HEMOGLOBIN 30.1 PG (27.0-34.0); MEAN CORPUSCULAR HGB CONC 33.4 % (32.0-36.0); NEUT % 77.9 % (16.0-70.0); PLATELET COUNT 289 TH/MM3 (150-450); RED BLOOD COUNT 4.58 MIL/MM3 (4.50-5.90); RED CELL DISTRIBUTION WIDTH 13.4 % (11.6-17.2); WHITE BLOOD COUNT 14.1 TH/MM3 (4.0-11.0)
[2017-06-23 18:53] LABS: APTT (PATIENT) 23.1 SEC (24.3-30.1); INTERNATIONAL NORMALIZED RATIO 1.1 RATIO; PROTHROMBIN TIME - PATIENT 11.4 SEC (9.8-11.6)
[2017-06-23 18:56] LABS: ANION GAP 5 MEQ/L (5-15); AST (GOT) 21 U/L (15-37); BICARBONATE 28.3 MEQ/L (21.0-32.0); BLOOD UREA NITROGEN 14 MG/DL (7-18); CHLORIDE 102 MEQ/L (98-107); GLOMERULAR FILTRATION RATE 71 ML/MIN (>89); POTASSIUM 3.7 MEQ/L (3.5-5.1); SODIUM (NA) 135 MEQ/L (136-145)
[2017-06-23 18:57] LABS: ALT (GPT) 34 U/L (12-78)
[2017-06-23 19:02] LABS: ALKALINE PHOSPHATASE 71 U/L (45-117); CREATINE KINASE 175 U/L (39-308); TOTAL BILIRUBIN ADULT 0.5 MG/DL (0.2-1.0)
[2017-06-23 19:14] LABS: CKMB 1.9 NG/ML (0.5-3.6)
[2017-06-23 20:43] VITALS: BP 137/79; PULSE 64; RESP 17; O2SAT 97
--- NOTE | 2017-06-23 20:57 | PD ---
HPI Chief Complaint: Neuro Symptoms/ Deficits Time Seen by Provider: 20:52 Travel History International Travel<30 days: No Contact w/Intl Traveler<30days: No Traveled to known affect area: No History of Present Illness HPI The patient is a 52 year old male who presents to the [facility] emergency department with a history of several episodes today of lightheaded sensation, slurred speech, nausea, and numbness all over that lasts from 1 minute to 15 minutes. He reports that he has had more frequent episodes today than usual although he has been experiencing similar symptoms for the last 6 months. He reports that in the past he did have chest tightness with it. He reports that he was admitted to the hospital in January and had an abnormal stress test done followed by cardiac catheterization. He had moderate multivessel disease on catheterization which medical management was recommended for. The patient reports that he does smoke a pack of cigarettes per day. He has not quit smoking. He reports that today when he had the 15 minute episode everything appeared to be in slow motion to him. During the episode he also felt short of breath. He denies having any chest pain today. On review of systems, he denies having any recent fevers, cough, congestion, neck pain, chest pain, shortness of breath, abdominal pain, vomiting, diarrhea, urinary symptoms, or other neurologic symptoms. Primary care physician: Dr. Hand. 3Rd Mate: Dr. Enio randle reports that he has been scheduled for a Holter monitor on 07/21, and a carotid ultrasound on 07/24. [facility] Past Medical History Narrative Medical The patient's past medical history is significant for moderate multivessel coronary artery disease, tobacco abuse, hypertension, hyperlipidemia, TIA reported in 2005. Cancer: No Cardiac Catheterization: Yes (01/2017) Cardiovascular Problems: Yes Cerebrovascular Accident: Yes (TIA 2005) Diminished Hearing: No Endocrine: No Genitourinary: Yes Immune Disorder: No Kidney Stones: No Musculoskeletal: No Neurologic: No Psychiatric: No Reproductive: No Respiratory: Yes (sleep apnea) Immunizations Current: Yes Renal Failure: No Triglycerides - High: Yes Tetanus Vaccination: > 5 Years Influenza Vaccination: No Past Surgical History Narrative Surgical The patient's past surgical history is significant for bladder surgery, appendectomy. Abdominal Surgery: No AICD: No Appendectomy: Yes Arteriovenous Shunt: No Cardiac Surgery: No Ear Surgery: No Endocrine Surgery: No Eye Surgery: No Genitourinary Surgery: Yes ("holes in bladder repaired") Gynecologic Surgery: No Insulin Pump: No Joint Replacement: No Oral Surgery: No Pacemaker: No Thoracic Surgery: No Other Surgery: Yes Social History Alcohol Use: Yes (occasionally beer) Tobacco Use: Yes (one pack per day) Substance Use: No Allergies-Medications (Allergen,Severity, Reaction): Coded Allergies: No Known Allergies (Unverified Allergy, Unknown, 06/23/17) Reported Meds & Prescriptions Reported Meds & Active Scripts Active Pantoprazole (Pantoprazole Sodium) 40 Mg Tab 40 Mg PO DAILY 30 Days Atorvastatin (Atorvastatin Calcium) 40 Mg Tab 40 Mg PO DAILY 30 Days Aspirin Low Strength (Aspirin) 81 Mg Chew 81 Mg CHEW DAILY 30 Days Norvasc (Amlodipine Besylate) 5 Mg Tab 5 Mg PO DAILY 30 Days Reported Xanax (Alprazolam) 0.25 Mg Tab 0.25 Mg PO DAILY PRN Review of Systems Except as stated in HPI: all other systems reviewed are Neg General / Constitutional: No: Fever Eyes: No: Visual changes HENT: Positive: Lightheadedness, No: Headaches, Congestion Cardiovascular: No: Chest Pain or Discomfort Respiratory: Positive: Shortness of Breath, No: Cough Gastrointestinal: Positive: Nausea, No: Vomiting, Diarrhea, Abdominal Pain, Changes in Bowel Habits, Indigestion, Loss of Appetite Genitourinary: No: Dysuria Musculoskeletal: No: Pain Skin: No Rash Neurologic: Positive: Weakness (generalized weakness), Dizziness, Slurred Speech, No: Focal Abnormalities, Change in Mentation, Sensory Disturbance Psychiatric: No: Depression Endocrine: No: Polydipsia Hematologic/Lymphatic: No: Easy Bruising Physical Exam Narrative General: The patient is a well-developed well-nourished male in no acute distress. Head and Neck exam: Head is normocephalic atraumatic. Eyes: EOMI, pupils are equal round and reactive to light. Nose: Midline septum with pink mucous membranes Mouth: Dentition unremarkable. Moist mucus membranes. Posterior oropharynx is not erythematous. No tonsillar hypertrophy. Uvula midline. Airway patent. Neck: No palpable lymphadenopathy. No nuchal rigidity. No thyromegaly. Cardiovascular: Regular rate and rhythm without murmurs, gallops, or rubs. Lungs: Clear to auscultation bilaterally. No wheezes, rhonchi, or rales. Abdomen: Soft, without tenderness to palpation in all 4 quadrants of the abdomen. No guarding, rebound, or rigidity. Normal bowel sounds are audible. No tenderness on palpation of McBurney's point. Extremities: No clubbing, cyanosis, or edema. 2+ pulses in all 4 extremities. No calf tenderness on palpation. Back: No spinous process tenderness to palpation. No costovertebral angle tenderness to palpation. Neurologic Exam: Cranial nerves 2-12 were intact on exam. Strength is 5/5 in all 4 extremities. No sensory deficits noted. Skin Exam: No rash noted. Intact skin that is warm and dry. Data Data Last Documented VS Vital Signs Date Time Temp Pulse Resp B/P (MAP) Pulse Ox O2 Delivery O2 Flow Rate FiO2 06/23/17 20:43 64 17 137/79 (98) 97 06/23/17 17:57 98.4 Orders Orders Electrocardiogram (06/23/17 18:10) Complete Blood Count With Diff (06/23/17 18:10) Comprehensive Metabolic Panel (06/23/17 18:10) Magnesium (Mg) (06/23/17 18:10) Ckmb (Isoenzyme) Profile (06/23/17 18:10) Troponin I (06/23/17 18:10) Act Partial Throm Time (Ptt) (06/23/17 18:10) Prothrombin Time / Inr (Pt) (06/23/17 18:10) Ct Brain W/O Iv Contrast(Rout) (06/23/17 ) CKMB (06/23/17 18:20) CKMB% (06/23/17 18:20) Urinalysis - C+S If Indicated (06/23/17 20:54) Ammonia (06/23/17 20:54) Thyroid Stimulating Hormone (06/23/17 20:54) Chest, Single Ap (06/23/17 20:54) Iv Access Insert/Monitor (06/23/17 20:54) Ecg Monitoring (06/23/17 20:54) Oximetry (06/23/17 20:54) Drug Screen, Random Urine (06/23/17 20:54) Alcohol (Ethanol) (06/23/17 20:54) Salicylates (Aspirin) (06/23/17 20:54) Tylenol (Acetaminophen) (06/23/17 20:54) Orthostatic Vital Signs (06/23/17 20:54) Sodium Chlor 0.9% 1000 Ml Inj (Ns 1000 M (06/23/17 21:00) Ondansetron Inj (Zofran Inj) (06/23/17 21:00) Admit Order (Ed Use Only) (06/23/17 22:35) Labs Laboratory Tests Test 06/23/17 18:20 06/23/17 21:30 White Blood Count 14.1 TH/MM3 Red Blood Count 4.58 MIL/MM3 Hemoglobin 13.8 GM/DL Hematocrit 41.4 % Mean Corpuscular Volume 90.4 FL Mean Corpuscular Hemoglobin 30.1 PG Mean Corpuscular Hemoglobin Concent 33.4 % Red Cell Distribution Width 13.4 % Platelet Count 289 TH/MM3 Mean Platelet Volume 8.2 FL Neutrophils (%) (Auto) 77.9 % Lymphocytes (%) (Auto) 16.2 % Monocytes (%) (Auto) 5.0 % Eosinophils (%) (Auto) 0.3 % Basophils (%) (Auto) 0.6 % Neutrophils # (Auto) 11.0 TH/MM3 Lymphocytes # (Auto) 2.3 TH/MM3 Monocytes # (Auto) 0.7 TH/MM3 Eosinophils # (Auto) 0.0 TH/MM3 Basophils # (Auto) 0.1 TH/MM3 CBC Comment DIFF FINAL Differential Comment Prothrombin Time 11.4 SEC Prothromb Time International Ratio 1.1 RATIO Activated Partial Thromboplast Time 23.1 SEC Blood Urea Nitrogen 14 MG/DL Creatinine 1.09 MG/DL Random Glucose 99 MG/DL Total Protein 7.6 GM/DL Albumin 3.9 GM/DL Calcium Level 8.8 MG/DL Magnesium Level 2.0 MG/DL Alkaline Phosphatase 71 U/L Aspartate Amino Transf (AST/SGOT) 21 U/L Alanine Aminotransferase (ALT/SGPT) 34 U/L Total Bilirubin 0.5 MG/DL Sodium Level 135 MEQ/L Potassium Level 3.7 MEQ/L Chloride Level 102 MEQ/L Carbon Dioxide Level 28.3 MEQ/L Anion Gap 5 MEQ/L Estimat Glomerular Filtration Rate 71 ML/MIN Total Creatine Kinase 175 U/L Creatine Kinase MB 1.9 NG/ML Troponin I LESS THAN 0.02 NG/ML Urine Color LIGHT-YELLOW Urine Turbidity CLEAR Urine pH 6.0 Urine Specific [place] 1.011 Urine Protein NEG mg/dL Urine Glucose (UA) NEG mg/dL Urine Ketones NEG mg/dL Urine Occult Blood NEG Urine Nitrite NEG Urine Bilirubin NEG Urine Urobilinogen LESS THAN 2.0 MG/DL Urine Leukocyte Esterase NEG Urine WBC 2 /hpf Microscopic Urinalysis Comment CULT NOT INDICATED Ammonia 26 MCMOL/L Thyroid Stimulating Hormone 3rd Gen 1.310 uIU/ML Salicylates Level LESS THAN 1.7 MG/DL Urine Opiates Screen NEG Acetaminophen Level LESS THAN 2.0 MCG/ML Urine Barbiturates Screen NEG Urine Amphetamines Screen NEG Urine Benzodiazepines Screen POS Urine Cocaine Screen NEG Urine Cannabinoids Screen NEG Ethyl Alcohol Level LESS THAN 3 MG/DL MDM Medical Decision Making Medical Screen Exam Complete: Yes Emergency Medical Condition: Yes Medical Record Reviewed: Yes Interpretation(s) Last Impressions Chest X-Ray 06/23/172053 Signed Impressions: Service Date/Time: Friday, June 23, 2017 21:04 - CONCLUSION: The lungs are clear. Darryl Clemens MD Head CT 06/23/17 0000 Signed Impressions: Service Date/Time: Friday, June 23, 2017 20:05 - CONCLUSION: 1. No acute findings in the brain. 2. 1 cm expansile and destructive lesion in the left parietal calvarium. Darryl Clemens MD Differential Diagnosis TIA, versus vasovagal near-syncope, versus orthostasis, versus cardiac arrhythmia Narrative Course During the course of the patients emergency department visit, the patients history, examination, and differential diagnosis were reviewed with the patient. The patient was placed on a manager cardiac cath with oximetry and frequent blood pressure monitoring. The patient had IV access obtained and blood work sent for analysis. Orthostatic vital signs were done and reportedly negative. The patient reports that he did take his usual low-dose aspirin earlier today. After CT scan of the brain showed no acute intracranial hemorrhage the patient was given an additional 243 mg by mouth 1. The patients laboratory studies were reviewed and remarkable for a white count of 14.1, hemoglobin 13.8, platelets 289 with 77.9 neutrophils. CMP is remarkable for sodium of 135, GFR 71, cardiac enzymes within normal limits, TSH 1.31, ammonia level XXVI ruling out hepatic encephalopathy, PT 11.4, PTT 23.1, urine drug screen is positive for benzodiazepines, acetaminophen less than 2, alcohol less than 3, salicylate less than 1.7, urinalysis within normal limits. Radiology studies were reviewed and remarkable for CT scan of the brain shows no acute findings in the brain, 1 cm expansile and destructive lesion in the left parietal calvarium. Chest x-ray shows no acute cardiopulmonary disease. The patient is agreeable with the plan to be admitted for evaluation for possible TIA as the cause of his symptoms. The patients results were discussed with the patient, including the plan of care. I explained that further testing and/ or monitoring is indicated based on the patients history, examination, and/ or laboratory findings. Therefore, I recommended admission for additional evaluation. The patient expressed understanding and was agreeable with this plan. The patient was admitted to the hospital in guarded condition and sent to a bed under the care of the [facility] service. Physician Communication Physician Communication The patient's case including history, pertinent physical examination findings, and laboratory studies were discussed with Dr. Banuelos. It was agreed that the patient would be admitted to the [facility] service. Diagnosis Primary Impression: Near syncope Additional Impressions: TIA (transient ischemic attack) Qualified Codes: G45.9 - Transient cerebral ischemic attack, unspecified Skull anomaly Admitting Information Admitting Physician Requests: Observation Alia Aguirre MD Jun 23, 2017 20:57
[2017-06-23] MEDS ORDERED: ONDANSETRON HCL 4 MG/2 ML VIAL IV PUSH ONE (21:00)
[2017-06-23] MEDS ORDERED: SODIUM CHLOR 0.9% 1000 ML INJ 1,000 ML IV ONE (21:00)
--- NOTE | 2017-06-23 21:19 | RADRPT ---
EXAM DATE/TIME: 06/23/2017 20:05 [place] COMPARISON: No previous studies available for comparison. INDICATIONS : Syncope,altered mental status RADIATION DOSE: 56.36 CTDIvol (mGy) MEDICAL HISTORY : Cardiovascular disease SURGICAL HISTORY : Appendectomy. ENCOUNTER: Initial ACUITY: 1 day PAIN SCALE: 0/10 LOCATION: cranial TECHNIQUE: Multiple contiguous axial images were obtained of the head. Using automated exposure control and adj ustment of the mA and/or kV according to patient size, radiation dose was kept as low as reasonably a chievable to obtain optimal diagnostic quality images. DICOM format image data is available electro nically for review and comparison. FINDINGS: CEREBRUM: The ventricles are normal for age. No evidence of midline shift, mass lesion, hemorrhage or acute in farction. No extra-axial fluid collections are seen. POSTERIOR FOSSA: The cerebellum and brainstem are intact. The 4th ventricle is midline. The cerebellopontine angle i s unremarkable. EXTRACRANIAL: The visualized portion of the orbits is intact. SKULL: There is a focal lytic lesion in the left mid convexity parietal calvarium measuring 1.0 cm and causi ng expansion of the width of the calvarium and loss of delineation of the inner and outer tables; in residual inner and outer cortex is still discernible.. CONCLUSION: 1. No acute findings in the brain. 2. 1 cm expansile and destructive lesion in the left parietal calvarium. Darryl Clemens MD on June 23, 2017 at 21:14 Board Certified Radiologist. This report was verified electronically.
--- NOTE | 2017-06-23 22:08 | RADRPT ---
EXAM DATE/TIME: 06/23/2017 21:04 [facility] COMPARISON: CHEST SINGLE AP, May 05, 2017, 11:47. INDICATIONS : Syncopal episode today. MEDICAL HISTORY : Hypercholesterolemia. Smoker. SURGICAL HISTORY : None. ENCOUNTER: Initial ACUITY: 1 day PAIN SCORE: 0/10 LOCATION: Bilateral chest FINDINGS: A single view of the chest demonstrates the lungs to be symmetrically aerated without evidence of mas s, infiltrate or effusion. The cardiomediastinal contours are unremarkable. Osseous structures are intact. CONCLUSION: The lungs are clear. Darryl Clemens MD on June 23, 2017 at 22:06 Board Certified Radiologist. This report was verified electronically.
[2017-06-23 22:26] LABS: BLOOD, URINE NEG (NEG); COMMENT (UR) CULT NOT INDICATED; CULTURE IF INDICATED CULT NOT INDICATED; GLUCOSE,URINE NEG (NEG); KETONE, URINE NEG (NEG); NITRITE,URINE NEG (NEG); URINE COLOR LIGHT-YELLOW (YELLW/STRAW)
[2017-06-23] MEDS ORDERED: GADODIAMIDE PF 287 MG/ML 5 ML VIAL (for RAD MRI) IVCONTRAST ONE (22:38)
[2017-06-23 22:54] LABS: ACETAMINOPHEN LESS THAN 2.0 MCG/ML (10.0-30.0); ALCOHOL LESS THAN 3 MG/DL (0-5)
[2017-06-23 22:59] VITALS: BP_SYST 110; BP_SYST 118; BP_DIAS 65; BP_DIAS 67; RESP 16
[2017-06-23] MEDS ORDERED: DEXTROSE 50% IN WATER 50 ML VIAL(D50) IV PUSH PRN (23:00)
[2017-06-23] MEDS ORDERED: SODIUM CHLORIDE 0.9% FLUSH 10 ML FLUSH IV FLUSH PRN (23:00)
[2017-06-23] MEDS ORDERED: ASPIRIN 81 MG CHEW TAB CHEW ONE (23:00)
[2017-06-23] MEDS ORDERED: GLUCAGON 1 MG/ML VIAL OTHER PRN (23:00)
[2017-06-23] MEDS: SODIUM CHLOR 0.9% 1000 ML INJ 1,000 ML IV SCH (23:51)
[2017-06-24] VITALS (10 sets, daily range): BP systolic 105–148; BP diastolic 55–78; PULSE 58–68; RESP 16–20; TEMP 97.9–98.8; O2SAT 94–96
[2017-06-24] MEDS: HEPARIN SODIUM - SQ 10,000 UNITS/ML VIAL SQ SCH ×3 (06:23→21:28)
[2017-06-24] MEDS: INSULIN ASPART SUPPLEMENTAL SCALE SQ SCH ×4 (08:00→20:58)
[2017-06-24] MEDS: SODIUM CHLORIDE 0.9% FLUSH 10 ML FLUSH IV FLUSH SCH ×2 (09:00→20:58)
--- NOTE | 2017-06-24 09:18 | HHI.HP ---
[facility] Service [facility] Primary Care Physician Katelynn Hand D.O. Admission Diagnosis TIA versus near syncope Diagnoses: Chief Complaint: s Travel History International Travel<30 Days: No Contact w/Intl Traveler <30 Da: No Traveled to Known Affected Are: No Past Family Social History Allergies: Coded Allergies: No Known Allergies (Unverified Allergy, Unknown, 06/23/17) Physical Exam Vital Signs Laboratory Laboratory Tests Test 06/23/17 18:20 06/23/17 21:30 White Blood Count 14.1 Red Blood Count 4.58 Hemoglobin 13.8 Hematocrit 41.4 Mean Corpuscular Volume 90.4 Mean Corpuscular Hemoglobin 30.1 Mean Corpuscular Hemoglobin Concent 33.4 Red Cell Distribution Width 13.4 Platelet Count 289 Mean Platelet Volume 8.2 Neutrophils (%) (Auto) 77.9 Lymphocytes (%) (Auto) 16.2 Monocytes (%) (Auto) 5.0 Eosinophils (%) (Auto) 0.3 Basophils (%) (Auto) 0.6 Neutrophils # (Auto) 11.0 Lymphocytes # (Auto) 2.3 Monocytes # (Auto) 0.7 Eosinophils # (Auto) 0.0 Basophils # (Auto) 0.1 CBC Comment DIFF FINAL Differential Comment Prothrombin Time 11.4 Prothromb Time International Ratio 1.1 Activated Partial Thromboplast Time 23.1 Blood Urea Nitrogen 14 Creatinine 1.09 Random Glucose 99 Total Protein 7.6 Albumin 3.9 Calcium Level 8.8 Magnesium Level 2.0 Alkaline Phosphatase 71 Aspartate Amino Transf (AST/SGOT) 21 Alanine Aminotransferase (ALT/SGPT) 34 Total Bilirubin 0.5 Sodium Level 135 Potassium Level 3.7 Chloride Level 102 Carbon Dioxide Level 28.3 Anion Gap 5 Estimat Glomerular Filtration Rate 71 Total Creatine Kinase 175 Creatine Kinase MB 1.9 Troponin I LESS THAN 0.02 Urine Color LIGHT-YELLOW Urine Turbidity CLEAR Urine pH 6.0 Urine Specific [place] 1.011 Urine Protein NEG Urine Glucose (UA) NEG Urine Ketones NEG Urine Occult Blood NEG Urine Nitrite NEG Urine Bilirubin NEG Urine Urobilinogen LESS THAN 2.0 Urine Leukocyte Esterase NEG Urine WBC 2 Microscopic Urinalysis Comment CULT NOT INDICATED Ammonia 26 Thyroid Stimulating Hormone 3rd Gen 1.310 Salicylates Level LESS THAN 1.7 Urine Opiates Screen NEG Acetaminophen Level LESS THAN 2.0 Urine Barbiturates Screen NEG Urine Amphetamines Screen NEG Urine Benzodiazepines Screen POS Urine Cocaine Screen NEG Urine Cannabinoids Screen NEG Ethyl Alcohol Level LESS THAN 3 Result Diagram: 06/23/17181906/23/171819 Caprini VTE Risk Assessment Caprini Risk Assessment Model Point Value = 1 Point Value = 2 Point Value = 3 Point Value = 5 Age 41-60 Minor surgery BMI > 25 kg/m2 Swollen legs Varicose veins or History of unexplained or recurrent spontaneous Oral contraceptives or hormone replacement Sepsis (< 1 month) Serious lung disease, including pneumonia (< 1 month) Abnormal pulmonary function Acute myocardial infarction Congestive heart failure (< 1 month) History of inflammatory bowel disease Medical patient at bed rest Age 61-74 Arthroscopic surgery Major open surgery (> 45 min) Laparoscopic surgery (> 45 min) Malignancy Confined to bed (> 72 hours) Immobilizing plaster cast Central venous access Age >= 75 History of VTE Family history of VTE Factor V Leiden Prothrombin [id number] Lupus anticoagulant Anticardiolipin antibodies Elevated serum homocysteine Heparin-induced thrombocytopenia Other congenital or acquired thrombophilia Stroke (< 1 month) Elective arthroplasty Hip, pelvis, or leg fracture Acute spinal cord injury (< 1 month) Prophylaxis Regimen Total Risk Factor Score Risk Level Prophylaxis Regimen 0-1 Low Early ambulation 2 Moderate Order ONE of the following: *Sequential Compression Device (SCD) *Heparin 5000 units SQ BID 3-4 Higher Order ONE of the following medications: *Heparin 5000 units SQ TID *Enoxaparin/Lovenox 40 mg SQ daily (WT < 150 kg, CrCl > 30 mL/min) *Enoxaparin/Lovenox 30 mg SQ daily (WT < 150 kg, CrCl > 10-29 mL/min) *Enoxaparin/Lovenox 30 mg SQ BID (WT < 150 kg, CrCl > 30 mL/min) AND/OR *Sequential Compression Device (SCD) 5 or more Highest Order ONE of the following medications: *Heparin 5000 units SQ TID (Preferred with Epidurals) *Enoxaparin/Lovenox 40 mg SQ daily (WT < 150 kg, CrCl > 30 mL/min) *Enoxaparin/Lovenox 30 mg SQ daily (WT < 150 kg, CrCl > 10-29 mL/min) *Enoxaparin/Lovenox 30 mg SQ BID (WT < 150 kg, CrCl > 30 mL/min) AND *Sequential Compression Device (SCD) Kassy Magdaleno Jun 24, 2017 09:18
--- NOTE | 2017-06-24 09:22 | HHI.HP ---
[facility] Service [facility] Primary Care Physician Katelynn Hand D.O. Admission Diagnosis TIA versus near syncope Diagnoses: Chief Complaint: Dizziness/lightheadedness/nausea/left-sided headache Travel History International Travel<30 Days: No Contact w/Intl Traveler <30 Da: No Traveled to Known Affected Are: No History of Present Illness This is a 52-year-old male past medical history who presented with generalized symptoms such as dizziness/lightheadedness since January. Patient had multiple admissions secondary to the symptoms. He stated associated with these symptoms also are nausea and left-sided headache. Patient stated that the symptoms are intermittent but had increase in regards and duration. He stated yesterday he had about 3 episodes the longest one lasting 15 minutes. He denies any chest pain, shortness of breathing, visual changes or focal neurological deficits with these symptoms. He stated that when they happen he just feels a generalized weakness. Per his during the symptoms it seems that he has been out of body experience in which he is able to hear but he cannot respond. All other review system reviewed and negative. Past Family Social History Past Medical History Coronary artery disease, multi vessel disease, status post cardiac catheterization with recommendation for medical management Tobaccoism Hypertension Dyslipidemia TIA, 2006 Obstructive sleep apnea Past Surgical History Bladder surgery Appendectomy Reported Medications Reported Meds & Active Scripts Active Pantoprazole (Pantoprazole Sodium) 40 Mg Tab 40 Mg PO DAILY 30 Days Atorvastatin (Atorvastatin Calcium) 40 Mg Tab 40 Mg PO DAILY 30 Days Aspirin Low Strength (Aspirin) 81 Mg Chew 81 Mg CHEW DAILY 30 Days Norvasc (Amlodipine Besylate) 5 Mg Tab 5 Mg PO DAILY 30 Days Reported Xanax (Alprazolam) 0.25 Mg Tab 0.25 Mg PO DAILY PRN Allergies: Coded Allergies: No Known Allergies (Unverified Allergy, Unknown, 06/23/17) Active Ordered Medications Current Medications Sodium Chloride 1,000 ml @ 999 mls/hr BOLUS ONCE IV Last administered on t 21:43; Start 06/23/17 at 21:00; Stop 06/23/17 at 22:00; Status DC Ondansetron HCl (Zofran Inj) 4 mg ONCE ONCE IV PUSH Last administered on 06/23 21:43; Start 06/23/17 at 21:00; Stop 06/23/17 at 21:01; Status DC Aspirin (Aspirin Chew) 243 mg ONCE ONCE CHEW Last administered on 06/23/17 23:06; Start 06/23/17 at 23:00; Stop 06/23/17 at 23:01; Status DC Sodium Chloride (NS Flush) 2 ml BID IV FLUSH ; Start 06/24/17 at 09:00 Sodium Chloride (NS Flush) 2 ml UNSCH PRN IV FLUSH FLUSH AFTER USING IV ACCESS ; Start 06/23/17 at 23:00 Sodium Chloride 1,000 ml @ 70 mls/hr [id number] IV Last administered on 23:51; Start 06/23/17 at 22:46 Aspirin (Aspirin) 325 mg DAILY PO ; Start 06/24/17 at 09:00 Insulin Aspart (NovoLOG SUPPLEMENTAL SCALE) 1 ACHS SQ ; Start 06/24/17 at 08:00 Dextrose (D50w (Vial) Inj) 50 ml UNSCH PRN IV PUSH HYPOGLYCEMIA-SEE COMMENTS; Start 06/23/17 at 23:00 Glucagon (Glucagon Inj) 1 mg UNSCH PRN OTHER HYPOGLYCEMIA-SEE COMMENTS; Start 06/23/17 at 23:00 Heparin Sodium (Porcine) (Heparin Inj) 5,000 units Q8H SQ Last administered on 06/24/17 06:23; Start 06/24/17 at 06:00 Atorvastatin Calcium (Lipitor) 40 mg DAILY PO ; Start 06/24/17 at 09:00 Family History Father had a history of leukemia. Mother had history of CVA diabetes. Social History Patient reports tobacco use of a pack per day since the age of [age] years old. He reports occasional alcohol use. Denies any illicit drug use. Physical Exam Vital Signs Vital Signs Date Time Temp Pulse Resp B/P (MAP) Pulse Ox O2 Delivery O2 Flow Rate FiO2 06/24/17 07:31 98.4 68 19 113/68 (83) 95 06/24/17 04:15 98.3 61 18 123/70 (87) 95 06/24/17 03:01 58 06/24/17 02:30 98.4 68 18 128/78 (95) 94 06/24/17 00:55 98.8 65 18 132/57 (82) 95 06/23/17 23:34 06/23/17 22:59 61 16 118/65 (82) 67 16 110/67 (81) 06/23/17 20:43 64 17 137/79 (98) 97 06/23/17 17:57 98.4 80 16 156/79 (104) 96 Physical Exam GENERAL: This is a well-nourished, well-developed patient, in no apparent distress. SKIN: No rashes, ecchymoses or lesions. Cool and dry. HEAD: Atraumatic. Normocephalic. No temporal or scalp tenderness. EYES: Pupils equal round and reactive. Extraocular motions intact. No scleral icterus. No injection or drainage. ENT: Nose without bleeding, purulent drainage or septal hematoma. Throat without erythema, tonsillar hypertrophy or exudate. Uvula midline. Airway patent. NECK: Trachea midline. No JVD or lymphadenopathy. Supple, nontender, no meningeal signs. CARDIOVASCULAR: Regular rate and rhythm without murmurs, gallops, or rubs. RESPIRATORY: Clear to auscultation. Breath sounds equal bilaterally. No wheezes , rales, or rhonchi. GASTROINTESTINAL: Abdomen soft, non-tender, nondistended. No hepato-splenomegaly , or palpable masses. No guarding. MUSCULOSKELETAL: Extremities without clubbing, cyanosis, or edema. No joint tenderness, effusion, or edema noted. No calf tenderness. Negative Homans sign bilaterally. NEUROLOGICAL: Awake and alert. Cranial nerves II through XII intact. Motor and sensory grossly within normal limits. Five out of 5 muscle strength in all muscle groups. Normal speech. Laboratory Laboratory Tests Test 06/23/17 18:20 06/23/17 21:30 White Blood Count 14.1 Red Blood Count 4.58 Hemoglobin 13.8 Hematocrit 41.4 Mean Corpuscular Volume 90.4 Mean Corpuscular Hemoglobin 30.1 Mean Corpuscular Hemoglobin Concent 33.4 Red Cell Distribution Width 13.4 Platelet Count 289 Mean Platelet Volume 8.2 Neutrophils (%) (Auto) 77.9 Lymphocytes (%) (Auto) 16.2 Monocytes (%) (Auto) 5.0 Eosinophils (%) (Auto) 0.3 Basophils (%) (Auto) 0.6 Neutrophils # (Auto) 11.0 Lymphocytes # (Auto) 2.3 Monocytes # (Auto) 0.7 Eosinophils # (Auto) 0.0 Basophils # (Auto) 0.1 CBC Comment DIFF FINAL Differential Comment Prothrombin Time 11.4 Prothromb Time International Ratio 1.1 Activated Partial Thromboplast Time 23.1 Blood Urea Nitrogen 14 Creatinine 1.09 Random Glucose 99 Total Protein 7.6 Albumin 3.9 Calcium Level 8.8 Magnesium Level 2.0 Alkaline Phosphatase 71 Aspartate Amino Transf (AST/SGOT) 21 Alanine Aminotransferase (ALT/SGPT) 34 Total Bilirubin 0.5 Sodium Level 135 Potassium Level 3.7 Chloride Level 102 Carbon Dioxide Level 28.3 Anion Gap 5 Estimat Glomerular Filtration Rate 71 Total Creatine Kinase 175 Creatine Kinase MB 1.9 Troponin I LESS THAN 0.02 Urine Color LIGHT-YELLOW Urine Turbidity CLEAR Urine pH 6.0 Urine Specific [place] 1.011 Urine Protein NEG Urine Glucose (UA) NEG Urine Ketones NEG Urine Occult Blood NEG Urine Nitrite NEG Urine Bilirubin NEG Urine Urobilinogen LESS THAN 2.0 Urine Leukocyte Esterase NEG Urine WBC 2 Microscopic Urinalysis Comment CULT NOT INDICATED Ammonia 26 Thyroid Stimulating Hormone 3rd Gen 1.310 Salicylates Level LESS THAN 1.7 Urine Opiates Screen NEG Acetaminophen Level LESS THAN 2.0 Urine Barbiturates Screen NEG Urine Amphetamines Screen NEG Urine Benzodiazepines Screen POS Urine Cocaine Screen NEG Urine Cannabinoids Screen NEG Ethyl Alcohol Level LESS THAN 3 Result Diagram: 06/23/17 1820 06/23/17 1820 Imaging Last Impressions Chest X-Ray 06/23/[id number] Signed Impressions: Service Date/Time: Friday, June 23, 2017 21:04 - CONCLUSION: The lungs are clear. Darryl Clemens MD Head CT 06/23/17 0000 Signed Impressions: Service Date/Time: Friday, June 23, 2017 20:05 - CONCLUSION: 1. No acute findings in the brain. 2. 1 cm expansile and destructive lesion in the left parietal calvarium. Darryl Clemens MD Caprini VTE Risk Assessment Caprini VTE Risk Assessment: Mod/High Risk (score >= 2) Caprini Risk Assessment Model Point Value = 1 Point Value = 2 Point Value = 3 Point Value = 5 Age 41-60 Minor surgery BMI > 25 kg/m2 Swollen legs Varicose veins or History of unexplained or recurrent spontaneous Oral contraceptives or hormone replacement Sepsis (< 1 month) Serious lung disease, including pneumonia (< 1 month) Abnormal pulmonary function Acute myocardial infarction Congestive heart failure (< 1 month) History of inflammatory bowel disease Medical patient at bed rest Age 61-74 Arthroscopic surgery Major open surgery (> 45 min) Laparoscopic surgery (> 45 min) Malignancy Confined to bed (> 72 hours) Immobilizing plaster cast Central venous access Age >= 75 History of VTE Family history of VTE Factor V Leiden Prothrombin [id number] Lupus anticoagulant Anticardiolipin antibodies Elevated serum homocysteine Heparin-induced thrombocytopenia Other congenital or acquired thrombophilia Stroke (< 1 month) Elective arthroplasty Hip, pelvis, or leg fracture Acute spinal cord injury (< 1 month) Prophylaxis Regimen Total Risk Factor Score Risk Level Prophylaxis Regimen 0-1 Low Early ambulation 2 Moderate Order ONE of the following: *Sequential Compression Device (SCD) *Heparin 5000 units SQ BID 3-4 Higher Order ONE of the following medications: *Heparin 5000 units SQ TID *Enoxaparin/Lovenox 40 mg SQ daily (WT < 150 kg, CrCl > 30 mL/min) *Enoxaparin/Lovenox 30 mg SQ daily (WT < 150 kg, CrCl > 10-29 mL/min) *Enoxaparin/Lovenox 30 mg SQ BID (WT < 150 kg, CrCl > 30 mL/min) AND/OR *Sequential Compression Device (SCD) 5 or more Highest Order ONE of the following medications: *Heparin 5000 units SQ TID (Preferred with Epidurals) *Enoxaparin/Lovenox 40 mg SQ daily (WT < 150 kg, CrCl > 30 mL/min) *Enoxaparin/Lovenox 30 mg SQ daily (WT < 150 kg, CrCl > 10-29 mL/min) *Enoxaparin/Lovenox 30 mg SQ BID (WT < 150 kg, CrCl > 30 mL/min) AND *Sequential Compression Device (SCD) Assessment and Plan Assessment and Plan This is a 52-year-old male past medical history coronary disease and question of TIAs who presented intermittent symptoms of lightheadedness/dizziness with left-sided headache and nausea since January which has worsened Lightheadedness/dizziness/left-sided headache/nausea/confusion, intermittent -Symptoms have worsened since January. No focal neurological deficits on physical exam. -CT of brain scan showed 1 cm destructive lesion in the left parietal calvarium. Otherwise basic labs were relatively normal. Lesion may explain patient's symptoms. -Will rule out TIA. -Will obtain echo, MRI, MRA of the brain, carotid ultrasound,, lipid panel. Monitor on telemetry. -Resume home medication which includes aspirin and statin. -Consult neurologist. -Neuro exam. Coronary artery disease. -Resume home medication. Tobacco dependence -Education given. Smoking cessation. DVT prophylaxis -Heparin. Discussed Condition With patient and his Amira Ugalde MD Jun 24, 2017 09:22
[2017-06-24] MEDS: ASPIRIN 325 MG TAB PO SCH (09:42)
[2017-06-24] MEDS: ATORVASTATIN 40 MG TAB PO SCH (09:42)
--- NOTE | 2017-06-24 11:11 | RADRPT ---
EXAM DATE/TIME: 06/24/2017 09:51 [facility] COMPARISON: No previous studies available for comparison. INDICATIONS : Cerebrovascular accident. MEDICAL HISTORY : TIA. CVA. Cardiac disorders. Hyperlipidemia. SURGICAL HISTORY : Appendectomy. Bladder surgery. Left knee surgery. ENCOUNTER: Initial ACUITY: 1 day PAIN SCORE: 1/10 LOCATION: Bilateral neck. PEAK SYSTOLIC VELOCITIES (cm/sec): ICA/CCA RATIO: Right: 0.8 Left: 0.8 ICA: Right: 95 Left: 94 CCA: Right: 116 Left: 116 ECA: Right: 132 Left: 111 VERTEBRAL: Right: 48 antegrade Left: 71 antegrade Elevated flow velocities and ICA/CCA ratios have been found to correlate with increased degrees of vessel stenosis, calculated as percentage of diameter relative to a normal segment of distal ICA/CCA FINDINGS: RIGHT CAROTID: Mild calcified plaque involving the proximal ICA. No significant stenosis is visualized. The wavefor ms are within normal limits. LEFT CAROTID: Mild calcified plaque involving the proximal ICA. No significant stenosis is visualized. The wavefor ms are within normal limits. VERTEBRAL ARTERIES: Antegrade flow is seen in both vertebral arteries. MISCELLANEOUS: None. CONCLUSION: 1. Patent carotid arteries bilaterally. 2. Antegrade flow involving both vertebral arteries. Darryl Ramirez Jr., MD on June 24, 2017 at 11:06 Board Certified Radiologist. This report was verified electronically.
[2017-06-24 12:13] LABS: AUTOMATED NEUTROPHIL # 9.5 TH/MM3 (1.8-7.7); BASOPHIL # 0.1 TH/MM3 (0-0.2); BASOPHIL % 0.8 % (0.0-2.0); EOSINOPHIL # 0.1 TH/MM3 (0-0.4); EOSINOPHIL % 0.8 % (0.0-4.0); HEMATOCRIT 38.5 % (39.0-51.0); HEMO FLAGS DIFF FINAL; LYMPHOCYTE # 2.2 TH/MM3 (1.0-4.8); MEAN CORPUSCULAR HEMOGLOBIN 30.4 PG (27.0-34.0); MEAN CORPUSCULAR HGB CONC 33.4 % (32.0-36.0); MONO % 6.9 % (0.0-8.0); NEUT % 74.5 % (16.0-70.0); PLATELET COUNT 263 TH/MM3 (150-450); RED BLOOD COUNT 4.24 MIL/MM3 (4.50-5.90); RED CELL DISTRIBUTION WIDTH 13.7 % (11.6-17.2); WHITE BLOOD COUNT 12.8 TH/MM3 (4.0-11.0)
--- NOTE | 2017-06-24 12:13 | MB ---
cc: NATALY TOMLIN M.D. DATE OF CONSULTATION 06/24/2017 DATE OF 04/02/2015 AGE [age] years old. REASON FOR CONSULTATION Possible TIA. HISTORY OF PRESENT ILLNESS The patient is a 52-year-old man with a history of coronary artery disease, multivessel disease, post cardiac cath with medical management, hypertension, hyperlipidemia, TIA possibly in '06, sleep apnea obstructive. He comes in because he has been getting symptoms which his describes as fogginess. He becomes dizzy. His states that he is very distant like he is not actually there. The events can last seconds, minutes to 15 minutes. This had multiple of these, three yesterday. He has what he remembers is a severe pressure-like pain over the left side of the head to the back of the eye. Questionable slurring of speech per his but no facial droop described and just feels weak and tingly all over. Currently he is back to baseline. PAST MEDICAL HISTORY As stated. SOCIAL HISTORY He is employed. He is a smoker. No alcohol or drug history. ALLERGIES None reported. HOME MEDICATIONS 1. Alprazolam p.r.n. 2. Pantoprazole. 3. Atorvastatin. 4. Baby aspirin. 5. Norvasc. PHYSICAL EXAMINATION VITAL SIGNS: Temperature is 98.4, pulse 65, respiratory rate 20, blood pressure 148/74, sating at 96%. NECK: Supple. No appreciable bruits. HEART: Regular. LUNGS: Appear clear. NEUROLOGICAL EXAMINATION He is awake, alert. He is oriented. He is fluent. His pupils are reactive. Visual is[place] full. Face symmetrical. Tongue midline. Motor: No sensory loss. No weakness. No drift. No leg lag. 5/5 strength throughout. DTRs are 1+. Toes are downgoing. Cerebellar is normal. His gait is withheld at this time. LABORATORY DATA His labs are reviewed. White count 14.1, neutrophils 77.9. His chemistries show sodium 135, GFR 71. Cardiac enzymes were negative. TSH 1.310. Ammonia is 26. Toxicology positive for benzodiazepines, otherwise the rest is really unremarkable. Urine unremarkable. IMAGING STUDIES CT of the head did not show any acute stroke or infarct but there is a 1-cm lesion, possible expansile and destructive in the left parietal calvarium. His chest x-ray shows lungs are clear. His carotid was just done; we do not have the report yet. IMPRESSION Possible TIA, possible seizure. RECOMMENDATIONS 1. MRI of the brain. I did change it to with and without contrast. We are going to try to delineate if that is a destructive lesion. If so, then I would recommend at that point in time further evaluation possibly by Oncology if needed. MRA chilkat of [place] and carotid ultrasound. 2. Get a lipid panel. 3. I am also adding an EEG, to rule out a seizure-like events. 4. Resume aspirin and statin for now. If he has had TIAs, that means he has failed aspirin therapy. I would change him to Plavix at that point, 75 mg daily. 5. Resume his home medications for his heart disease. 6. He needs to really stop smoking. 7. DVT prophylaxis with subcu heparin. 8. PT, OT evaluation as well. 9. Depending on findings, further recommendations will be made accordingly. MD LYLE Prado/CATHY /10:53 AM /12:00 PM
[2017-06-24 12:34] LABS: ANION GAP 5 MEQ/L (5-15); BICARBONATE 28.8 MEQ/L (21.0-32.0); BLOOD UREA NITROGEN 10 MG/DL (7-18); CHLORIDE 108 MEQ/L (98-107); GLOMERULAR FILTRATION RATE 86 ML/MIN (>89); POTASSIUM 3.8 MEQ/L (3.5-5.1); SODIUM (NA) 142 MEQ/L (136-145)
[2017-06-24 12:36] LABS: HDL CHOLESTEROL 46.5 MG/DL (40.0-60.0); LDL CHOLESTEROL 51 MG/DL (0-99)
--- NOTE | 2017-06-24 13:13 | EKG ---
Date Performed: 06/23/2017 Time Performed: 18:21:43 PTAGE: 52 years EKG: Sinus rhythm NORMAL ECG PREVIOUS TRACING : 05/05/2017 17.48 Compared to prior tracing no significant change DOCTOR: Paul Milton Interpretating Date/Time 06/24/2017 13:12:16
--- NOTE | 2017-06-24 14:00 | RADRPT ---
EXAM DATE/TIME: 06/24/2017 12:40 [facility] COMPARISON: CT BRAIN W/O CONTRAST, June 23, 2017, 20:05. INDICATIONS : Dizziness. Left sided pressure behind eye. CONTRAST: 14 cc Omniscan (gadodiamide) IV MEDICAL HISTORY : TIA SURGICAL HISTORY : Appendectomy. LT ACL ENCOUNTER: Subsequent ACUITY: 2 day PAIN SCORE: 1/10 LOCATION: Left cranial TECHNIQUE: Multiplanar, multisequence MRI of the brain was performed both prior to and following the administrat ion of paramagnetic contrast. FINDINGS: CEREBRUM: The ventricles are normal for age. No evidence of midline shift, mass lesion, hemorrhage or acute in farction. No extraaxial fluid collections are seen. The pituitary gland and suprasellar cistern are normal in configuration. WHITE MATTER: No significant signal abnormalities are seen in the white matter. POSTERIOR FOSSA: The cerebellum and brainstem are intact. The 4th ventricle is midline. The cerebellopontine angle is unremarkable. The cerebellar tonsils are normal in position. DIFFUSION IMAGING: No focal areas of restricted diffusion are seen. No evidence of acute infarction. EXTRACRANIAL: There is a 1.3 cm lesion involving the calvarium on the left at the temporoparietal junction. This le roosevelt is resulting in expansion of the inner and outer tables of the calvarium. It is low in signal on the T1-weighted sequence with high intensity on the T2-weighted sequence. No significant enhancement observed. No other appreciable lesions observed. The visualized portions of the orbits are unremarka ble. Mucosal thickening is seen involving the maxillary sinuses bilaterally but more pronounced on th e right. A few small ethmoid air cells show mucosal thickening bilaterally. No air fluid levels obser ruby. POST-CONTRAST: No abnormal areas of parenchymal or dural enhancement. No evidence of blood-brain barrier breakdown. CONCLUSION: 1. No acute intracranial abnormality. 2. 1.3 cm lesion involving the left temporal parietal bone is nonspecific in its appearance. Differen tial diagnostic considerations are quite broad at this point. Possibilities include plasmocytoma, mul tiple myeloma, eosinophilic granuloma, solitary metastasis, and aneurysmal bone cyst. 3. Chronic paranasal sinus disease. Darryl Ramirez Jr., MD on June 24, 2017 at 13:43 Board Certified Radiologist. This report was verified electronically.
--- NOTE | 2017-06-24 14:26 | RADRPT ---
EXAM DATE/TIME: 06/24/2017 12:40 [facility] COMPARISON: No previous studies available for comparison. INDICATIONS : Dizziness. Pressure behind left eye. MEDICAL HISTORY : TIA SURGICAL HISTORY : Appendectomy. Lt ACL ENCOUNTER: Subsequent ACUITY: 2 day PAIN SCORE: 1/10 LOCATION: Left cranial Please note a normal MRA of the brain does not entirely exclude the possibility of a small aneurysm, nor the possibility of distal intracranial vessel disease. TECHNIQUE: 3D time of flight MRA was performed. Source images, multiplanar STS MIP, and 3D volume MIP reconstru ctions were reviewed. FINDINGS: Anterior circulation: Distal intracranial internal carotid arteries are patent with flow extending to the middle and anteri or cerebral arteries. Right A1 segment is not visualized and likely aplastic. There is no evidence fo r aneurysm, vessel truncation or stenosis, and no evidence for vascular malformation. Posterior circulation: Symmetric distal vertebral arteries with flow extending to basilar artery. There is no evidence for aneurysm, vessel truncation or stenosis, and no evidence for vascular malformation. CONCLUSION: 1. 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 2. Otherwise, unremarkable MRA examination of the brain. Luis Enrique Martinez MD on June 24, 2017 at 14:22 Board Certified Radiologist. This report was verified electronically.
[2017-06-24] MEDS: SODIUM CHLOR 0.9% 1000 ML INJ 1,000 ML IV SCH (14:37)
[2017-06-24 17:20] LABS: HEMOGLOBIN A1a 1.4 %; HEMOGLOBIN A1b 0.9 %; HEMOGLOBIN Ao 83.6 %; HEMOGLOBIN F 1.1 %; HEMOGLOBIN LA1C 2.2 %; HEMOGLOBIN P3 5.7 %
--- NOTE | 2017-06-24 21:23 | MG ---
cc: ADRIEL PAGE MD Lab No: Date: 06/24/2017 Age: Sex: M Race: ELECTROENCEPHALOGRAM RECORD NUMBER [id number] DATE OF 1965 HISTORY A 52-year-old single episode of slurred speech, lightheadedness, numbness. DESCRIPTION Posterior rhythm demonstrating 8-9 Hz activity. 20-50 microvolts. Low amplitude, beta in the frontal channels. Good anterior-posterior gradient. Excellent driving with photic stimulation. Frequent eye movement flutter artifact. Single lead EKG showing sinus rhythm. INTERPRETATION Normal awake EEG. Clinical correlation. Adriel Page MD MG/KK /9:01 PM /9:16 PM
[2017-06-25] MEDS: SODIUM CHLOR 0.9% 1000 ML INJ 1,000 ML IV SCH ×2 (03:22→17:40)
[2017-06-25 03:52] VITALS: BP 135/75; PULSE 65; RESP 18; TEMP 98.1; O2SAT 95
[2017-06-25 04:30] VITALS: PULSE 67
[2017-06-25] MEDS: HEPARIN SODIUM - SQ 10,000 UNITS/ML VIAL SQ SCH ×3 (04:55→21:20)
[2017-06-25 07:50] VITALS: BP 139/82; PULSE 64; RESP 20; TEMP 98.2; O2SAT 98
[2017-06-25] MEDS: INSULIN ASPART SUPPLEMENTAL SCALE SQ SCH ×4 (07:56→21:00)
[2017-06-25] MEDS: ATORVASTATIN 40 MG TAB PO SCH (07:57)
[2017-06-25] MEDS: SODIUM CHLORIDE 0.9% FLUSH 10 ML FLUSH IV FLUSH SCH ×2 (07:57→21:00)
[2017-06-25] MEDS: ASPIRIN 325 MG TAB PO SCH (07:57)
[2017-06-25 08:12] VITALS: PULSE 68
--- NOTE | 2017-06-25 10:41 | HHI.PR ---
Subjective Remarks Follow-up for syncope and brain lesion Patient stated that he's been having more symptoms. He feels pressure on the left side of his brain. Patient also feeling tingling in his left foot. Otherwise no other complaints. Patient's is at the bedside she asked that if his next can be restarted and if he can have a nicotine patch. Objective Vitals Vital Signs Date Time Temp Pulse Resp B/P (MAP) Pulse Ox O2 Delivery O2 Flow Rate FiO2 06/25/17 08:12 68 06/25/17 07:50 98.2 64 20 139/82 (101) 98 06/25/17 04:30 67 06/25/17 03:52 98.1 65 18 135/75 (95) 95 06/24/17 23:56 97.9 65 18 105/55 (72) 95 06/24/17 19:58 98.1 63 18 126/73 (90) 94 06/24/17 16:01 98.2 64 16 118/70 (86) 95 I/O 06/24/17 06/24/17 06/24/17 06/25/17 06/25/17 06/25/17 07:00 15:00 23:00 07:00 15:00 23:00 Intake Total 800 ml 875 ml Balance 800 ml 875 ml Intake Oral 875 ml IV Total 800 ml # Voids 8 Result Diagram: 06/24/17 1116 06/24/17 1116 Objective Remarks GENERAL: in NAD CARDIOVASCULAR: Regular rate and rhythm without murmurs, gallops, or rubs. RESPIRATORY: Breath sounds equal bilaterally. No accessory muscle use. GASTROINTESTINAL: Abdomen soft, non-tender, nondistended. MUSCULOSKELETAL: No cyanosis, or edema. BACK: Nontender without obvious deformity. No CVA tenderness. NEURO: CN 2-12 intact. 5/5 upper and lower extremity strength. Sensation is intact. Medications and IVs Current Medications Sodium Chloride 1,000 ml @ 999 mls/hr BOLUS ONCE IV Last administered on 21:43; Start 06/23/17 at 21:00; Stop 06/23/17 at 22:00; Status DC Ondansetron HCl (Zofran Inj) 4 mg ONCE ONCE IV PUSH Last administered on 06/23 21:43; Start 06/23/17 at 21:00; Stop 06/23/17 at 21:01; Status DC Aspirin (Aspirin Chew) 243 mg ONCE ONCE CHEW Last administered on 06/23/17 23:06; Start 06/23/17 at 23:00; Stop 06/23/17 at 23:01; Status DC Sodium Chloride (NS Flush) 2 ml BID IV FLUSH ; Start 06/24/17 at 09:00 Sodium Chloride (NS Flush) 2 ml UNSCH PRN IV FLUSH FLUSH AFTER USING IV ACCESS ; Start 06/23/17 at 23:00 Sodium Chloride 1,000 ml @ 70 mls/hr [id number] IV Last administered on 03:22; Start 06/23/17 at 22:46 Aspirin (Aspirin) 325 mg DAILY PO Last administered on 06/25/17 07:57; Start 06/24/17 at 09:00 Insulin Aspart (NovoLOG SUPPLEMENTAL SCALE) 1 ACHS SQ ; Start 06/24/17 at 08:00 Dextrose (D50w (Vial) Inj) 50 ml UNSCH PRN IV PUSH HYPOGLYCEMIA-SEE COMMENTS; Start 06/23/17 at 23:00 Glucagon (Glucagon Inj) 1 mg UNSCH PRN OTHER HYPOGLYCEMIA-SEE COMMENTS; Start 06/23/17 at 23:00 Heparin Sodium (Porcine) (Heparin Inj) 5,000 units Q8H SQ Last administered on 06/25/17 04:55; Start 06/24/17 at 06:00 Atorvastatin Calcium (Lipitor) 40 mg DAILY PO Last administered on 06/25/17 07:57; Start 06/24/17 at 09:00 Gadodiamide (Omniscan Pf Inj) 14 ml STK-MED ONCE IVCONTRAST Last administered on 06/23/17 22:38; Start 06/23/17 at 22:38; Stop 06/24/17 at 13:04; Status DC Alprazolam (Xanax) 0.25 mg DAILY PO ; Start 06/25/17 at 10:15; Status UNV Nicotine (Habitrol 21 Mg Patch.24 Hr) 1 patch DAILY T-DERMAL ; Start 06/26/17 at 09:00; Status UNV Miscellaneous Information 1 HS T-DERMAL ; Start 06/25/17 at 21:00; Status UNV A/P Assessment and Plan This is a 52-year-old male past medical history coronary disease and question of TIAs who presented intermittent symptoms of lightheadedness/dizziness with left-sided headache and nausea since January which has worsened Lightheadedness/dizziness/left-sided headache/nausea/confusion, intermittent -Symptoms have worsened since January. No focal neurological deficits on physical exam. -CT of brain scan showed 1 cm destructive lesion in the left parietal calvarium. Otherwise basic labs were relatively normal. Lesion may explain patient's symptoms. -MRI shows a 1.3 cm lesion in the temporoparietal area. Will consult neurosurgeon for possible be a biopsy. -Pending echo results. Carotid ultrasound negative. -Neurologist consulted and following. Coronary artery disease. -Continue home medication Tobacco dependence -Education given. Smoking cessation. Will give a nicotine patch. DVT prophylaxis -Heparin. Amira Ugalde MD Jun 25, 2017 10:41
--- NOTE | 2017-06-25 11:15 | HHI.PR ---
Review/Management Diagnosis Dizziness Left face pain and numbness HTN ALEXANDRA Anxiety Radiologic finding of left temporal bone lesion Plan Neuro checks Q4h Whole body scan Consult neurosurgery Continue supportive medical therapy Diagnosis/Plan: Subjective Subjective Comments Following patient for Dr. Mcpherson Patient with at bed side Complains of left side face pain and numbness MRI brain with evidence of a left temporal bone lesion Unlikely this lesion is the cause of his symptoms EEG with no evidence an ictal activity Active Medications Current Medications Medications (Trade) Dose Ordered Sig/Shanelle Route Start Time Stop Time Status Last Admin (NS Flush) 2 ml BID IV FLUSH 06/24/17 09:00 (NS Flush) 2 ml UNSCH PRN IV FLUSH 06/23/17 23:00 Sodium Chloride 1,000 ml @ 70 mls/hr [id number] IV 06/23/17 22:46 06/25/17 03:22 (Aspirin) 325 mg DAILY PO 06/24/17 09:00 06/25/17 07:57 (NovoLOG SUPPLEMENTAL SCALE) 1 ACHS SQ 06/24/17 08:00 (D50w (Vial) Inj) 50 ml UNSCH PRN IV PUSH 06/23/17 23:00 (Glucagon Inj) 1 mg UNSCH PRN OTHER 06/23/17 23:00 (Heparin Inj) 5,000 units Q8H SQ 06/24/17 06:00 06/25/17 04:55 (Lipitor) 40 mg DAILY PO 06/24/17 09:00 06/25/17 07:57 (Xanax) 0.25 mg DAILY PO 06/25/17 10:15 (Habitrol 21 Mg Patch.24 Hr) 1 patch DAILY T-DERMAL 06/26/17 09:00 Miscellaneous Information 1 HS T-DERMAL 06/25/17 21:00 Allergies Allergies Coded Allergies No Known Allergies (Unverified Allergy, Unknown, 06/23/17) Review of Systems All other ROS: ROS reviewed as documented in chart Exam I&O / VS Vital Signs Date Time Temp Pulse Resp B/P (MAP) Pulse Ox O2 Delivery O2 Flow Rate FiO2 06/25/17 08:12 68 06/25/17 07:50 98.2 64 20 139/82 (101) 98 06/25/17 04:30 67 06/25/17 03:52 98.1 65 18 135/75 (95) 95 06/24/17 23:56 97.9 65 18 105/55 (72) 95 06/24/17 19:58 98.1 63 18 126/73 (90) 94 06/24/17 16:01 98.2 64 16 118/70 (86) 95 General: Alert and Oriented, Mild distress Eye: PERRL, EOMI, Vision unchanged Respiratory: Lungs CTA, Non-labored respirations Cardiology: Normal rate, No murmur, Intact pulses Musculoskeletal: ROM Neurologic: Alert, Oriented, Normal sensory, Normal motor, No focal defects, CN II-XII intact, Normal DTR's Psychiatric: Cooperative, Appropriate mood & affect, Normal judgement Objective Radiology Results Last 72 hours Impressions Bone Scan Nuclear Medicine 06/25/17 0000 Signed Impressions: Service Date/Time: Sunday, June 25, 2017 12:28 - CONCLUSION: Normal whole-body bone scan. There is no uptake in the calvarium to suggest bony pathology.. Teddy Perla MD FACR Head Magnetic Resonance Angiography 06/24/17 0000 Signed Impressions: Service Date/Time: Saturday, June 24, 2017 12:40 - CONCLUSION: 1. 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 2. Otherwise, unremarkable MRA examination of the brain. Luis Enrique Martinez MD Carotid Artery Ultrasound 06/24/17 0000 Signed Impressions: Service Date/Time: Saturday, June 24, 2017 09:51 - CONCLUSION: 1. Patent carotid arteries bilaterally. 2. Antegrade flow involving both vertebral arteries. Darryl Ramirez Jr., MD Brain MRI 06/24/17 0000 Signed Impressions: Service Date/Time: Saturday, June 24, 2017 12:40 - CONCLUSION: 1. No acute intracranial abnormality. 2. 1.3 cm lesion involving the left temporal parietal bone is nonspecific in its appearance. Differential diagnostic considerations are quite broad at this point. Possibilities include plasmocytoma, multiple myeloma, eosinophilic granuloma, solitary metastasis, and aneurysmal bone cyst. 3. Chronic paranasal sinus disease. Darryl Ramirez Jr., MD Chest X-Ray [id number] Signed Impressions: Service Date/Time: Friday, June 23, 2017 21:04 - CONCLUSION: The lungs are clear. Darryl Clemens MD Micro and Labs Laboratory Tests Test 06/24/17 11:16 White Blood Count 12.8 Red Blood Count 4.24 Hemoglobin 12.9 Hematocrit 38.5 Mean Corpuscular Volume 91.0 Mean Corpuscular Hemoglobin 30.4 Mean Corpuscular Hemoglobin Concent 33.4 Red Cell Distribution Width 13.7 Platelet Count 263 Mean Platelet Volume 8.5 Neutrophils (%) (Auto) 74.5 Lymphocytes (%) (Auto) 17.0 Monocytes (%) (Auto) 6.9 Eosinophils (%) (Auto) 0.8 Basophils (%) (Auto) 0.8 Neutrophils # (Auto) 9.5 Lymphocytes # (Auto) 2.2 Monocytes # (Auto) 0.9 Eosinophils # (Auto) 0.1 Basophils # (Auto) 0.1 CBC Comment DIFF FINAL Differential Comment Blood Urea Nitrogen 10 Creatinine 0.93 Random Glucose 96 Calcium Level 8.3 Sodium Level 142 Potassium Level 3.8 Chloride Level 108 Carbon Dioxide Level 28.8 Anion Gap 5 Estimat Glomerular Filtration Rate 86 Hemoglobin A1c 6.0 Triglycerides Level 102 Cholesterol Level 118 LDL Cholesterol 51 HDL Cholesterol 46.5 Cholesterol/HDL Ratio 2.53 Ras Whitney MD Jun 25, 2017 11:15
[2017-06-25] MEDS: ALPRAZolam 0.25 MG TAB PO SCH (12:15)
--- NOTE | 2017-06-25 15:35 | MB ---
cc: SAGE ROWLAND ROHIT K. M.D. FULOP, DALIA M.D. DOOLIN, DINA M. D.O. DATE OF CONSULTATION: 06/25/2017 REASON FOR CONSULTATION Left parietal skull lytic mass. HISTORY OF PRESENT ILLNESS 52-year-old right-handed male who presented to the emergency room on 06/23/2017 with complaints of near syncopal episodes, pressure sensation on the left side of the head along with slurred speech, nausea and diffuse numbness. He has had several episodes lasting from a few minutes to 15 minutes. He denies any loss of consciousness. Initial symptoms started about 6 months ago when he also noted some chest tightness and discomfort and underwent cardiac workup and was found to have mild coronary atherosclerosis and stenosis and no treatment was recommended. Subsequently, in April he had another near syncopal episodes with some chest discomfort which also resolved. He has been currently admitted and undergone further workup including neurology evaluation. He denies any loss of consciousness associated with this. CT scan of the head obtained does not reveal any brain abnormality but there is a lytic left parietal lobe lesion noted. MRI scan of the brain with and without contrast confirms this expansile lytic mass in the left parietal skull about 1.3 cm without much of an enhancement. No brain abnormality is noted. Neurologist feel that he may have had a TIA or possible seizures, although EEG is negative. Carotid ultrasound is negative and MR angiogram of the brain is negative. Neurosurgery has been consulted for evaluation of this lytic expansile skull mass. PAST MEDICAL HISTORY 1. Coronary artery disease status post cardiac catheterization with recommendation of medical management. 2. Hypertension. 3. Hyperlipidemia. 4. Obstructive sleep apnea. 5. Appendectomy. 6. Bladder surgery. 7. Anxiety. MEDICATIONS 1. Protonix 40 mg daily. 2. Atorvastatin 40 mg daily. 3. Aspirin 81 mg daily. 4. Norvasc 5 mg daily. 5. Xanax 0.25 mg p.r.n. ALLERGIES NO KNOWN DRUG ALLERGIES. SOCIAL HISTORY He is and his is here with him. He smokes a pack of cigarettes a day. Denies alcohol use. 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 FAMILY HISTORY Positive for leukemia in the father as well as brain mass in his niece and cancer in his cousins. REVIEW OF SYSTEMS Complains of left-sided pressure sensation with intermittent fluctuance, complains of blurred vision associated with these near syncopal episodes, although denies any double vision. Complains of nausea and vomiting associated with these episodes. Complains of intermittent numbness and diffusely this morning in the left toe which has resolved. Denies any focal weakness. Denies any seizure-like activities. At this point denies any chest pain or shortness of breath. No history of easy bleeding or bruising. No fevers or chills. No recent weight gain or weight loss. No incontinence. Otherwise, review of systems is negative. LABORATORY STUDIES White blood cell count 12.8, hemoglobin 12.9, platelet count 263, PT 11.4, INR 1.1, PTT 23.1, sodium 142, potassium 3.8, BUN 10, creatinine 0.93, glucose 96. Toxicology screen positive for salicylates and benzodiazepine. Urinalysis is negative. PHYSICAL EXAMINATION VITAL SIGNS: Temperature 98.2, pulse is 64, respiratory rate 20, blood pressure 139/82, oxygen saturations 98% on room air. HEAD: Normocephalic, atraumatic. No Das's or raccoon's sign. No tenderness in the left parietal area to palpation. NECK: Neck is supple with no guarding or rigidity. No lymphadenopathy noted. CHEST: Clear to auscultation bilaterally. HEART: Regular rate and rhythm, normal S1, S2. ABDOMEN: Soft, nontender. No hepatosplenomegaly. No guarding or rigidity. EXTREMITIES: No cyanosis or edema. SKIN: No rashes or any breakdown noted. GENERAL: He is a middle-aged gentleman laying in a stretcher in no acute distress with the at the bedside. NEUROLOGIC: He is awake, alert. He is oriented x 3. Pupils are equal, reactive. Extraocular muscles are intact. Visual [place] are full to confrontation. He has a mild right facial droop. Tongue is midline. His motor strength is 5/5 in the upper and lower extremities. Sensation to light touch is intact. Negative Babinski. Speech is fluent. 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 Differential diagnosis includes metastasis as well as primary bone mass, among other possibilities. I am not convinced that this is the cause of his current neurologic presentation and the episodes of near syncope and associated neurologic deficits may be related to seizures or ischemic attacks. PLAN We will obtain a bone scan to rule out any other bony lesions systemically. If systemic skeletal workup is negative for any bony abnormalities, then we may consider an excisional biopsy of his left parietal skull mass. I have discussed this with the patient and his who understand and are in agreement. MD BRITTANY Link/ABBI /1:29 PM /2:57 PM MTDTracy
--- NOTE | 2017-06-25 16:23 | RADRPT ---
EXAM DATE/TIME: 06/25/2017 12:28 [facility] COMPARISON: CT BRAIN W/O CONTRAST, June 23, 2017, 20:05. PRIOR BONE SCANS: No correlative bone scan available for comparison. INDICATIONS : Neoplasm of temporal bone. DOSE: 30.1 mCi Tc99m MDP IV MEDICAL HISTORY : None SURGICAL HISTORY : Appendectomy. Left knee and bladder surgery. ENCOUNTER: Initial ACUITY: 3 days PAIN SCALE: 4/10 LOCATION: Head. TECHNIQUE: Three hours post intravenous administration of radiotracer, whole body bone scan imaging was performe d. FINDINGS: Blood pool images demonstrate a homogeneous pattern of uptake in the soft tissues. No hyperemic area s are identified. Planar bone scan demonstrates a normal pattern of uptake. No focal areas of incre ased or decreased uptake are seen. CONCLUSION: Normal whole-body bone scan. There is no uptake in the calvarium to suggest bony pat hology.. Teddy Perla MD FACR on June 25, 2017 at 16:20 Board Certified Radiologist. This report was verified electronically.
--- NOTE | 2017-06-25 19:26 | ECHRPT ---
Indication: CVA/TIA CONCLUSIONS Normal left ventricular size. Wall thickness is normal. The left ventricular systolic function is normal with an estimated ejection fraction of 55%. BP: 113 / 68 HR: 150 Rhythm: MEASUREMENTS (Male / Female) Normal Values Technical Quality:Good 2D ECHO LV Diastolic Diameter PLAX 4.7 cm 4.2 - 5.9 / 3.9 - 5.3 cm LV Systolic Diameter PLAX 3.5 cm IVS Diastolic Thickness 0.9 cm 0.6 - 1.0 / 0.6 - 0.9 cm LVPW Diastolic Thickness 0.7 cm 0.6 - 1.0 / 0.6 - 0.9 cm LV Relative Wall Thickness 0.3 LA Systolic Diameter LX 3.3 cm 3.0 - 4.0 / 2.7 - 3.8 cm M-MODE Aortic Root Diameter MM 2.8 cm AV Cusp Separation MM 1.9 cm DOPPLER MR Peak Velocity 400.0 cm/s MR Peak Gradient 64.0 mmHg Mitral E Point Velocity 73.5 cm/s Mitral A Point Velocity 65.2 cm/s Mitral E to A Ratio 1.1 TR Peak Velocity 257.0 cm/s TR Peak Gradient 26.4 mmHg Right Atrial Pressure 10.0 mmHg Pulmonary Artery Systolic Pressu 36.4 mmHg Right Ventricular Systolic Press 36.4 mmHg FINDINGS LEFT VENTRICLE Normal left ventricular size. Wall thickness is normal. The left ventricular systolic function is normal with an estimated ejection fraction of 55%. RIGHT VENTRICLE Normal right ventricular size and systolic function. LEFT ATRIUM The left atrial size is normal. RIGHT ATRIUM The right atrial size is normal. ATRIAL SEPTUM Normal atrial septal thickness without atrial level shunting by limited color doppler interrogation. AORTA The aortic root and proximal ascending aorta are normal in size on limited imaging. MITRAL VALVE Structurally normal mitral valve. No mitral valve stenosis or regurgitation. AORTIC VALVE Trileaflet aortic valve. No aortic valve stenosis or regurgitation. TRICUSPID VALVE Structurally normal tricuspid valve. No tricuspid valve stenosis or regurgitation. PULMONARY VALVE Trivial pulmonary valve regurgitation. VESSELS The inferior vena cava is normal in size. PERICARDIUM No pericardial effusion. Carl Melvin MD, FACC (Electronically Signed) Final Date:25 June 2017 19:25
[2017-06-25 20:12] VITALS: BP 133/67; PULSE 67; TEMP 98; O2SAT 95
[2017-06-25] MEDS ORDERED: REMOVE OLD PATCH T-DERMAL SCH (21:00)
[2017-06-26 00:39] VITALS: BP 127/72; PULSE 62; TEMP 98; O2SAT 96
[2017-06-26 04:11] VITALS: BP 130/71; PULSE 59; RESP 17; TEMP 97.7; O2SAT 97
[2017-06-26] MEDS: HEPARIN SODIUM - SQ 10,000 UNITS/ML VIAL SQ SCH ×2 (05:10→14:26)
[2017-06-26] MEDS: SODIUM CHLOR 0.9% 1000 ML INJ 1,000 ML IV SCH (07:58)
[2017-06-26 08:00] VITALS: PULSE 73
[2017-06-26 08:10] VITALS: BP 123/82; PULSE 69; RESP 20; TEMP 96.4; O2SAT 97
[2017-06-26] MEDS: INSULIN ASPART SUPPLEMENTAL SCALE SQ SCH ×2 (08:18→12:42)
[2017-06-26] MEDS: ATORVASTATIN 40 MG TAB PO SCH (08:24)
[2017-06-26] MEDS: ASPIRIN 325 MG TAB PO SCH (08:24)
[2017-06-26] MEDS: ALPRAZolam 0.25 MG TAB PO SCH (08:24)
[2017-06-26] MEDS: SODIUM CHLORIDE 0.9% FLUSH 10 ML FLUSH IV FLUSH SCH (08:26)
[2017-06-26] MEDS ORDERED: NICOTINE 21 MG/24 HR PATCH T-DERMAL SCH (09:00)
[2017-06-26 12:00] VITALS: PULSE 69
--- NOTE | 2017-06-26 12:39 | HHI.PR ---
Subjective Remarks Follow-up for brain lesion Patient complains. He stated that he feels a lot better. Telemetry shows intermittent episodes of bradycardia but he was asymptomatic during these episodes. Otherwise no other events. His is at the bedside during the interview. Objective Vitals Vital Signs Date Time Temp Pulse Resp B/P (MAP) Pulse Ox O2 Delivery O2 Flow Rate FiO2 06/26/17 08:10 96.4 69 20 123/82 (96) 97 06/26/17 08:00 73 06/26/17 04:11 97.7 59 17 130/71 (90) 97 06/26/17 00:39 98.0 62 127/72 (90) 96 06/25/17 20:12 98.0 67 133/67 (89) 95 I/O 06/25/17 06/25/17 06/25/17 06/26/17 06/26/17 06/26/17 07:00 15:00 23:00 07:00 15:00 23:00 Intake Total 375 ml Balance 375 ml Intake Oral 375 ml Result Diagram: 06/24/17 1116 06/24/17 1116 Imaging Last Impressions Bone Scan Nuclear Medicine 06/25/17 0000 Signed Impressions: Service Date/Time: Sunday, June 25, 2017 12:28 - CONCLUSION: Normal whole-body bone scan. There is no uptake in the calvarium to suggest bony pathology.. Teddy Perla MD FACR Head Magnetic Resonance Angiography 06/24/17 0000 Signed Impressions: Service Date/Time: Saturday, June 24, 2017 12:40 - CONCLUSION: 1. 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 2. Otherwise, unremarkable MRA examination of the brain. Luis Enrique Martinez MD Carotid Artery Ultrasound 06/24/17 0000 Signed Impressions: Service Date/Time: Saturday, June 24, 2017 09:51 - CONCLUSION: 1. Patent carotid arteries bilaterally. 2. Antegrade flow involving both vertebral arteries. Darryl Ramirez Jr., MD Brain MRI 06/24/17 0000 Signed Impressions: Service Date/Time: Saturday, June 24, 2017 12:40 - CONCLUSION: 1. No acute intracranial abnormality. 2. 1.3 cm lesion involving the left temporal parietal bone is nonspecific in its appearance. Differential diagnostic considerations are quite broad at this point. Possibilities include plasmocytoma, multiple myeloma, eosinophilic granuloma, solitary metastasis, and aneurysmal bone cyst. 3. Chronic paranasal sinus disease. Darryl Ramirez Jr., MD Chest X-Ray [id number]/23/[id number] Signed Impressions: Service Date/Time: Friday, June 23, 2017 21:04 - CONCLUSION: The lungs are clear. Darryl Clemens MD Head CT 06/23/17 0000 Signed Impressions: Service Date/Time: Friday, June 23, 2017 20:05 - CONCLUSION: 1. No acute findings in the brain. 2. 1 cm expansile and destructive lesion in the left parietal calvarium. Darryl Clemens MD Objective Remarks GENERAL: in NAD CARDIOVASCULAR: Regular rate and rhythm without murmurs, gallops, or rubs. RESPIRATORY: Breath sounds equal bilaterally. No accessory muscle use. GASTROINTESTINAL: Abdomen soft, non-tender, nondistended. MUSCULOSKELETAL: No cyanosis, or edema. BACK: Nontender without obvious deformity. No CVA tenderness. NEURO: CN 2-12 intact. 5/5 upper and lower extremity strength. Sensation is intact. Medications and IVs Current Medications Sodium Chloride 1,000 ml @ 999 mls/hr BOLUS ONCE IV Last administered on 21:43; Start 06/23/17 at 21:00; Stop 06/23/17 at 22:00; Status DC Ondansetron HCl (Zofran Inj) 4 mg ONCE ONCE IV PUSH Last administered on 06/23 21:43; Start 06/23/17 at 21:00; Stop 06/23/17 at 21:01; Status DC Aspirin (Aspirin Chew) 243 mg ONCE ONCE CHEW Last administered on 06/23/17 23:06; Start 06/23/17 at 23:00; Stop 06/23/17 at 23:01; Status DC Sodium Chloride (NS Flush) 2 ml BID IV FLUSH Last administered on 06/26/17 08 :26; Start 06/24/17 at 09:00 Sodium Chloride (NS Flush) 2 ml UNSCH PRN IV FLUSH FLUSH AFTER USING IV ACCESS ; Start 06/23/17 at 23:00 Sodium Chloride 1,000 ml @ 70 mls/hr [id number] IV Last administered on 03:22; Start 06/23/17 at 22:46 Aspirin (Aspirin) 325 mg DAILY PO Last administered on 06/26/17 08:24; Start 06/24/17 at 09:00 Insulin Aspart (NovoLOG SUPPLEMENTAL SCALE) 1 ACHS SQ ; Start 06/24/17 at 08:00 Dextrose (D50w (Vial) Inj) 50 ml UNSCH PRN IV PUSH HYPOGLYCEMIA-SEE COMMENTS; Start 06/23/17 at 23:00 Glucagon (Glucagon Inj) 1 mg UNSCH PRN OTHER HYPOGLYCEMIA-SEE COMMENTS; Start 06/23/17 at 23:00 Heparin Sodium (Porcine) (Heparin Inj) 5,000 units Q8H SQ Last administered on 06/26/17 05:10; Start 06/24/17 at 06:00 Atorvastatin Calcium (Lipitor) 40 mg DAILY PO Last administered on 06/26/17 08:24; Start 06/24/17 at 09:00 Gadodiamide (Omniscan Pf Inj) 14 ml STK-MED ONCE IVCONTRAST Last administered on 06/23/17 22:38; Start 06/23/17 at 22:38; Stop 06/24/17 at 13:04; Status DC Alprazolam (Xanax) 0.25 mg DAILY PO Last administered on 06/26/17 08:24; Start 06/25/17 at 10:15 Nicotine (Habitrol 21 Mg Patch.24 Hr) 1 patch DAILY T-DERMAL ; Start 06/26/17 at 09:00 Miscellaneous Information 1 HS T-DERMAL ; Start 06/25/17 at 21:00 A/P Assessment and Plan This is a 52-year-old male past medical history coronary disease and question of TIAs who presented intermittent symptoms of lightheadedness/dizziness with left-sided headache and nausea since January which has worsened Lightheadedness/dizziness/left-sided headache/nausea/confusion, intermittent -Symptoms have worsened since January. No focal neurological deficits on physical exam. -CT of brain scan showed 1 cm destructive lesion in the left parietal calvarium. Otherwise basic labs were relatively normal. Lesion may explain patient's symptoms. -MRI shows a 1.3 cm lesion in the temporoparietal area. Neurosurgeon and oncologist on board. Neurologists also following. - Echo reviewed with the EF of 55%. Carotid ultrasound negative. -. Per neurosurgeon oncologist if bone scan is negative may consider excisional biopsy. Bone scan is negative. Coronary artery disease. -Continue home medication Tobacco dependence -Education given. Smoking cessation. On nicotine patch.. DVT prophylaxis -Heparin. Discharge Planning Patient may get an excisional biopsy by neurosurgeon. Amira Ugalde MD Jun 26, 2017 12:39
[2017-06-26 13:20] VITALS: BP 124/81; PULSE 77; RESP 20; TEMP 96.3; O2SAT 96
[2017-06-26] MEDS ORDERED: SUMA25TA2 PO (15:50)
[2017-06-26] MEDS ORDERED: ASA325 PO (15:50)
--- NOTE | 2017-06-26 15:52 | HHI.DCPOC ---
Discharge Care Plan Diagnosis: (1) Headache (2) Brain lesion Goals to Promote Your Health * To prevent worsening of your condition and complications * To maintain your health at the optimal level Directions to Meet Your Goals Take your medications as prescribed Follow your dietary instruction Follow activity as directed Keep your appointments as scheduled Take your immunizations and boosters as scheduled If your symptoms worsen call your PCP, if no PCP go to Urgent Care Center or Emergency Room Smoking is Dangerous to Your Health. Avoid second hand smoke Call the 24-hour hour crisis hotline for domestic abuse at Amira Ugalde MD Jun 26, 2017 15:52
--- NOTE | 2017-06-26 16:04 | HHI.DS ---
Discharge Summary Admission Date Jun 23, 2017 at 22:37 Discharge Date: Jun 26, 2017 Admitting Diagnosis TIA versus near syncope (1) Lightheadedness ICD Code: R42 - Dizziness and giddiness Diagnosis: Principal (2) Headache ICD Code: R51 - Headache Diagnosis: Principal (3) Brain lesion ICD Code: G93.9 - Disorder of brain, unspecified Diagnosis: Principal Procedures See hospital course. Brief History - From Admission This is a 52-year-old male past medical history who presented with generalized symptoms such as dizziness/lightheadedness since January. Patient had multiple admissions secondary to the symptoms. He stated associated with these symptoms also are nausea and left-sided headache. Patient stated that the symptoms are intermittent but had increase in regards and duration. He stated yesterday he had about 3 episodes the longest one lasting 15 minutes. He denies any chest pain, shortness of breathing, visual changes or focal neurological deficits with these symptoms. He stated that when they happen he just feels a generalized weakness. Per his during the symptoms it seems that he has been out of body experience in which he is able to hear but he cannot respond. All other review system reviewed and negative. CBC/BMP: 06/24/17 1116 06/24/17 1116 Significant Findings Laboratory Tests Test 06/23/17 18:20 06/23/17 21:30 06/24/17 11:16 White Blood Count 14.1 TH/MM3 (4.0-11.0) 12.8 TH/MM3 (4.0-11.0) Neutrophils (%) (Auto) 77.9 % (16.0-70.0) 74.5 % (16.0-70.0) Neutrophils # (Auto) 11.0 TH/MM3 (1.8-7.7) 9.5 TH/MM3 (1.8-7.7) Activated Partial Thromboplast Time 23.1 SEC (24.3-30.1) Sodium Level 135 MEQ/L (136-145) Estimat Glomerular Filtration Rate 71 ML/MIN (>89) 86 ML/MIN (>89) Troponin I LESS THAN 0.02 NG/ML Salicylates Level LESS THAN 1.7 MG/DL Acetaminophen Level LESS THAN 2.0 MCG/ML Urine Benzodiazepines Screen POS (NEG) Red Blood Count 4.24 MIL/MM3 (4.50-5.90) Hemoglobin 12.9 GM/DL (13.0-17.0) Hematocrit 38.5 % (39.0-51.0) Calcium Level 8.3 MG/DL (8.5-10.1) Chloride Level 108 MEQ/L (98-107) Cholesterol Level 118 MG/DL (120-200) Imaging Last Impressions Bone Scan Nuclear Medicine 06/25/17 0000 Signed Impressions: Service Date/Time: Sunday, June 25, 2017 12:28 - CONCLUSION: Normal whole-body bone scan. There is no uptake in the calvarium to suggest bony pathology.. Teddy Perla MD FACR Head Magnetic Resonance Angiography 06/24/17 0000 Signed Impressions: Service Date/Time: Saturday, June 24, 2017 12:40 - CONCLUSION: 1. 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 2. Otherwise, unremarkable MRA examination of the brain. Luis Enrique Martinez MD Carotid Artery Ultrasound 06/24/17 0000 Signed Impressions: Service Date/Time: Saturday, June 24, 2017 09:51 - CONCLUSION: 1. Patent carotid arteries bilaterally. 2. Antegrade flow involving both vertebral arteries. Darryl Ramirez Jr., MD Brain MRI 06/24/17 0000 Signed Impressions: Service Date/Time: Saturday, June 24, 2017 12:40 - CONCLUSION: 1. No acute intracranial abnormality. 2. 1.3 cm lesion involving the left temporal parietal bone is nonspecific in its appearance. Differential diagnostic considerations are quite broad at this point. Possibilities include plasmocytoma, multiple myeloma, eosinophilic granuloma, solitary metastasis, and aneurysmal bone cyst. 3. Chronic paranasal sinus disease. Darryl Ramirez Jr., MD Chest X-Ray [id number]/23/[id number] Signed Impressions: Service Date/Time: Friday, June 23, 2017 21:04 - CONCLUSION: The lungs are clear. Darryl Clemens MD Head CT 06/23/17 0000 Signed Impressions: Service Date/Time: Friday, June 23, 2017 20:05 - CONCLUSION: 1. No acute findings in the brain. 2. 1 cm expansile and destructive lesion in the left parietal calvarium. Darryl Clemens MD PE at Discharge GENERAL: in NAD CARDIOVASCULAR: Regular rate and rhythm without murmurs, gallops, or rubs. RESPIRATORY: Breath sounds equal bilaterally. No accessory muscle use. GASTROINTESTINAL: Abdomen soft, non-tender, nondistended. MUSCULOSKELETAL: No cyanosis, or edema. BACK: Nontender without obvious deformity. No CVA tenderness. NEURO: CN 2-12 intact. 5/5 upper and lower extremity strength. Sensation is intact. Pt update on day of discharge See progress note. Patient no complaints. Asking for migraine medication as outpatient if headache recurs. Hospital Course This is a 52-year-old male past medical history coronary disease and question of TIAs who presented intermittent symptoms of lightheadedness/dizziness with left-sided headache and nausea since January which has worsened Lightheadedness/dizziness/left-sided headache/nausea/confusion, intermittent -Symptoms have worsened since January. No focal neurological deficits on physical exam. -CT of brain scan showed 1 cm destructive lesion in the left parietal calvarium. Otherwise basic labs were relatively normal. Lesion may explain patient's symptoms. -MRI shows a 1.3 cm lesion in the temporoparietal area. Neurosurgeon and oncologist on board. Neurologists also following. -Echo reviewed with the EF of 55%. Carotid ultrasound negative. -Differentials very broad may be secondary to TIA in which aspirin was increased before this can be due to a migraine headache since symptoms are associated with left-sided headache. Patient will be sent home on aspirin and will give sumatriptan to see if this helps with his symptoms the next time he has a headache. -Patient to follow-up with outpatient neurologist and PCP. Brain mass -CT of brain scan showed 1 cm destructive lesion in the left parietal calvarium. Otherwise basic labs were relatively normal. Lesion may explain patient's symptoms. -MRI shows a 1.3 cm lesion in the temporoparietal area. Neurosurgeon and oncologist on board. Neurologists also following. -Per neurosurgeon oncologist if bone scan is negative may consider excisional biopsy. Bone scan is negative. -Patient opted to wait for excisional biopsy and will follow up with neurosurgeon in 2 weeks. Coronary artery disease. -Continue home medication Tobacco dependence -Education given. Smoking cessation. On nicotine patch.. Pt Condition on Discharge: Good Discharge Disposition: Discharge Home Discharge Time: > 30 minutes Discharge Instructions DIET: Follow Instructions for: Heart Healthy Diet Speech Therapy-Diet Recommends: Regular Activities you can perform: Regular-No Restrictions Follow up Referrals: Appointment for Follow Up - 2 Weeks New Medications: Sumatriptan (Sumatriptan) 25 Mg Tab 25 MG PO ONCE PRN for MIGRAINE HEADACHE, #20 TAB 0 Refills If a satisfactory response has not been obtained at 2 hours, a second dose may be administered Aspirin (Px Aspirin) 325 Mg Tab 325 MG PO DAILY for TIA, #30 TAB 0 Refills Continued Medications: Alprazolam (Xanax) 0.25 Mg Tab 0.25 MG PO DAILY PRN for ANXIETY, TAB 0 Refills Atorvastatin (Atorvastatin) 40 Mg Tab 40 MG PO DAILY for 30 Days, TAB Pantoprazole (Pantoprazole) 40 Mg Tab 40 MG PO DAILY for 30 Days, TAB Discontinued Medications: Amlodipine (Norvasc) 5 Mg Tab 5 MG PO DAILY for 30 Days, TAB Amira Ugalde MD Jun 26, 2017 16:04
--- NOTE | 2017-06-26 16:43 | HHI.NSPN ---
History Interval History 52-year-old right-handed male who presented to the emergency room on 06/23/2017 with complaints of near syncopal episodes, pressure sensation on the left side of the head along with slurred speech, nausea and diffuse numbness. He has had several episodes lasting from a few minutes to 15 minutes. He denies any loss of consciousness. Initial symptoms started about 6 months ago when he also noted some chest tightness and discomfort and underwent cardiac workup and was found to have mild coronary atherosclerosis and stenosis and no treatment was recommended. Subsequently, in April he had another near syncopal episodes with some chest discomfort which also resolved. He has been currently admitted and undergone further workup including neurology evaluation. He denies any loss of consciousness associated with this. CT scan of the head obtained does not reveal any brain abnormality but there is a lytic left parietal lobe lesion noted. MRI scan of the brain with and without contrast confirms this expansile lytic mass in the left parietal skull about 1.3 cm without much of an enhancement. No brain abnormality is noted. Neurologist feel that he may have had a TIA or possible seizures, although EEG is negative. Carotid ultrasound is negative and MR angiogram of the brain is negative. Neurosurgery has been consulted for evaluation of this lytic expansile skull mass. 06/26/17: Walking in the hallways independently and relates he is feeling better. Review of Systems General: Negative for: fever, chills, insomnia Respiratory: Negative for: shortness of breath, cough, sputum Cardiovascular: Negative for: chest pain, palpitations, orthopnea Gastrointestinal: Negative for: nausea, vomitting, diarrhea, constipation Genitourinary: Negative for: urinary burning, urinary frequency, urinary urgency Exam Results Vital Signs Date Time Temp Pulse Resp B/P (MAP) Pulse Ox O2 Delivery O2 Flow Rate FiO2 06/26/17 13:20 96.3 77 20 124/81 (95) 96 Intake and Output 06/26/17 06/26/17 06/27/17 08:00 16:00 00:00 Intake Total 450 ml Balance 450 ml Physical Examination GENERAL: Well-nourished, well-developed patient. SKIN: Warm and dry. HEAD: Normocephalic and atraumatic. EYES: No scleral icterus. No injection or drainage. ENT: No nasal drainage noted. Mucous membranes pink. Airway patent. NECK: Supple, trachea midline. No JVD. CARDIOVASCULAR: Regular rate and rhythm without murmurs, gallops, or rubs. RESPIRATORY: Breath sounds equal bilaterally. No accessory muscle use. GASTROINTESTINAL: Abdomen soft, non-tender, nondistended. EXTREMITIES: No cyanosis or edema. BACK: Nontender without obvious deformity. No CVA tenderness. NEUROLOGICAL: Awake and alert. Pupils Equal and reactive. EOMI. Face symmetric. Tongue midline. Cranial nerves II through XII intact. Motor and sensory grossly within normal limits. Five out of 5 muscle strength in all muscle groups. Normal speech. Normal comprehension. DTR's symmetric. Negative Aguayo' s reflex. Negative Babinski. Lab, Micro, Other Results Last Impressions Bone Scan Nuclear Medicine 06/25/17 0000 Signed Impressions: Service Date/Time: Sunday, June 25, 2017 12:28 - CONCLUSION: Normal whole-body bone scan. There is no uptake in the calvarium to suggest bony pathology.. Teddy Perla MD FACR Head Magnetic Resonance Angiography 06/24/17 0000 Signed Impressions: Service Date/Time: Saturday, June 24, 2017 12:40 - CONCLUSION: 1. 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 2. Otherwise, unremarkable MRA examination of the brain. Luis Enrique Martinez MD Carotid Artery Ultrasound 06/24/17 0000 Signed Impressions: Service Date/Time: Saturday, June 24, 2017 09:51 - CONCLUSION: 1. Patent carotid arteries bilaterally. 2. Antegrade flow involving both vertebral arteries. Darryl Ramirez Jr., MD Brain MRI 06/24/17 0000 Signed Impressions: Service Date/Time: Saturday, June 24, 2017 12:40 - CONCLUSION: 1. No acute intracranial abnormality. 2. 1.3 cm lesion involving the left temporal parietal bone is nonspecific in its appearance. Differential diagnostic considerations are quite broad at this point. Possibilities include plasmocytoma, multiple myeloma, eosinophilic granuloma, solitary metastasis, and aneurysmal bone cyst. 3. Chronic paranasal sinus disease. Darryl Ramirez Jr., MD Chest X-Ray [id number]/23/[id number] Signed Impressions: Service Date/Time: Friday, June 23, 2017 21:04 - CONCLUSION: The lungs are clear. Darryl Clemens MD Head CT 06/23/17 0000 Signed Impressions: Service Date/Time: Friday, June 23, 2017 20:05 - CONCLUSION: 1. No acute findings in the brain. 2. 1 cm expansile and destructive lesion in the left parietal calvarium. 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 Differential diagnosis includes metastasis as well as primary bone mass, among other possibilities. I am not convinced that this is the cause of his current neurologic presentation and the episodes of near syncope and associated neurologic deficits may be related to seizures or ischemic attacks. Bone scan is negative for any other bony lesions systemically. Discussed with patient and the option of continued observation versus excisional biopsy of this left parietal skull mass along the risks and benefits involved. There would like to go home over the crispness holidays and then follow-up in the office and further contemplating on the options. Accordingly patient is cleared for discharge from my standpoint if cleared by neurology service. Tony Garcia MD Jun 26, 2017 16:43
== END 2017-06-26 16:51 | disposition home or self-care (01) ==
LOC: NEPC 17:55 → NEDA 22:37 → NEPHCDU 23:37
PROVIDERS: ADMIT Family Medicine; ATTEND Family Medicine
DX: R42 Dizziness and giddiness (principal); R06.02 Shortness of breath; R00.1 Bradycardia, unspecified; R55 Syncope and collapse; R41.82 Altered mental status, unspecified; R53.1 Weakness; R47.81 Slurred speech; R51 Headache; R11.0 Nausea; R20.0 Anesthesia of skin; R41.0 Disorientation, unspecified; I25.10 Atherosclerotic heart disease of native coronary artery without angina pectoris; G93.9 Disorder of brain, unspecified; I10 Essential (primary) hypertension; E78.00 Pure hypercholesterolemia, unspecified; G47.33 Obstructive sleep apnea (adult) (pediatric); M89.9 Disorder of bone, unspecified; F41.9 Anxiety disorder, unspecified; F17.210 Nicotine dependence, cigarettes, uncomplicated; Z79.899 Other long term (current) drug therapy; Z86.73 Personal history of transient ischemic attack (TIA), and cerebral infarction without residual deficits; Z79.82 Long term (current) use of aspirin
CPT/HCPCS: 70450; 70544; 70553; 71010; 78306; 80048; 80053; 80061; 80307; 81001; 82140; 82550; 82552; 82948; 83036; 83735; 84443; 84484; 85025; 85610; 85730; 92610; 93005; 93306; 93880; 95819; 96361; 96372; 96374; 97163; 97165; 99285; A9503; A9579; G0378; G8987; G8988; G8989; G8996; G8997; G8998; J1644; J2405; J7030